=== PATIENT | female | born 1985 | race Caucasian/White ===

== ENCOUNTER → 2016-09-21 10:44 | Outpatient (CLI) | payer MEDICAID ==
[2009-10-09 12:40] VITALS: BMI 19.9
[~2016-09-21 10:44] MED LIST: ATIVAN1 MG PO; Demerol PO; FERROUS SULFAT325 MG PO; HYDROCODON-ACE1 EAC6 PO; IBUPROFEN600 MG PO; PRENATABS RX TA1 TAB PO; ZOLOFT100 MG PO
[2016-09-21 12:02] LABS: APPEARANCE CLEAR (CLEAR); BILIRUBIN NEGATIVE (NEGATIVE); COLOR YELLOW (YELLOW); GLUCOSE NEGATIVE (NEGATIVE); KETONE NEGATIVE (NEGATIVE); LEUKOCYTE ESTERASE NEGATIVE (NEGATIVE); NITRITE NEGATIVE (NEGATIVE); PROTEIN NEGATIVE (NEGATIVE); UROBILINOGEN NORMAL (NORMAL)
== END | disposition home or self-care (01) ==
LOC: D.LDO 10:44
PROVIDERS: Obstetrics & Gynecology
DX: Z34.83 Encounter for supervision of other normal pregnancy, third trimester (principal); Z3A.29 29 weeks gestation of pregnancy

== ENCOUNTER → 2016-10-07 16:30 | Outpatient (CLI) | payer MEDICAID ==
[2009-10-09 12:40] VITALS: BMI 19.9
== END | disposition home or self-care (01) ==
LOC: D.LDO 16:30
DX: O26.899 Other specified pregnancy related conditions, unspecified trimester (principal); R10.2 Pelvic and perineal pain

== ENCOUNTER 2016-10-14 07:51 | Emergency (ER) | payer MEDICAID ==
[2009-10-09 12:40] VITALS: BMI 19.9
[~2016-10-14 07:51] MED LIST changes: -ATIVAN1 MG PO; -Demerol PO; -HYDROCODON-ACE1 EAC6 PO; -IBUPROFEN600 MG PO; -ZOLOFT100 MG PO
[2016-10-14 08:26] LABS: APPEARANCE SLT CLOUDY (CLEAR); BACTERIA MANY /hpf (NONE SEEN); BILIRUBIN NEGATIVE (NEGATIVE); COLOR YELLOW (YELLOW); EPITHELIAL CELLS 0-5 /hpf (0-5); GLUCOSE NEGATIVE (NEGATIVE); KETONE NEGATIVE (NEGATIVE); LEUKOCYTE ESTERASE 2+ (NEGATIVE); MUCUS <1+ /lpf (NONE SEEN); NITRITE POSITIVE (NEGATIVE); PROTEIN TRACE mg/dL (NEGATIVE); UROBILINOGEN NORMAL (NORMAL)
[2016-10-27] MEDS ORDERED: ZOLOFT100 MG PO (17:36)
== END 2016-10-14 09:00 | disposition home or self-care (01) ==
LOC: D.ER 07:51
PROVIDERS: Family Medicine
DX: N39.0 Urinary tract infection, site not specified (principal); F41.9 Anxiety disorder, unspecified; F32.9 Major depressive disorder, single episode, unspecified

== ENCOUNTER → 2016-10-27 16:26 | Outpatient (CLI) | payer MEDICAID ==
[2009-10-09 12:40] VITALS: BMI 19.9
[~2016-10-27 16:26] MED LIST changes: +ATIVAN1 MG PO; +Demerol PO; +HYDROCODON-ACE1 EAC6 PO; +IBUPROFEN600 MG PO; +ZOLOFT100 MG PO
[2016-10-27 17:20] LABS: APPEARANCE CLEAR (CLEAR); BILIRUBIN NEGATIVE (NEGATIVE); COLOR YELLOW (YELLOW); GLUCOSE NEGATIVE (NEGATIVE); KETONE NEGATIVE (NEGATIVE); LEUKOCYTE ESTERASE NEGATIVE (NEGATIVE); NITRITE NEGATIVE (NEGATIVE); PROTEIN NEGATIVE (NEGATIVE); SPECIFIC GRAVITY 1.015 (1.005-1.020); UROBILINOGEN NORMAL (NORMAL)
== END | disposition home or self-care (01) ==
LOC: D.LDO 16:26
PROVIDERS: Specialist
DX: Z34.83 Encounter for supervision of other normal pregnancy, third trimester (principal); Z3A.34 34 weeks gestation of pregnancy; R10.9 Unspecified abdominal pain; M54.9 Dorsalgia, unspecified; R30.9 Painful micturition, unspecified

== ENCOUNTER → 2016-11-30 14:17 | Outpatient (CLI) | payer MEDICAID ==
[2009-10-09 12:40] VITALS: BMI 19.9
== END | disposition home or self-care (01) ==
LOC: D.LDO 14:17
DX: O36.8130 Decreased fetal movements, third trimester, not applicable or unspecified (principal); Z3A.39 39 weeks gestation of pregnancy

== ENCOUNTER 2016-12-03 05:30 | Inpatient (IN) | payer MEDICAID ==
[~2016-12-03] VITALS: Ht 170.2 cm; Wt 86.2 kg
[~2016-12-03 05:30] MED LIST changes: -ATIVAN1 MG PO; -Demerol PO; -HYDROCODON-ACE1 EAC6 PO; -IBUPROFEN600 MG PO
[2016-12-03] MEDS ORDERED: ZOLOFT100 MG PO (06:12)
[2016-12-03] MEDS ORDERED: ATIVAN1 MG PO (06:13)
[2016-12-03] MEDS ORDERED: HYDROCODON-ACE1 EAC6 PO (06:14)
[2016-12-03 06:15] VITALS: BP 143/70; Ht 170.2 cm; Wt 86.2 kg
[2016-12-03 06:44] LABS: HEMATOCRIT 32.8 % (36.0-48.0); HEMOGLOBIN 11.3 g/dL (12-16); MCH 29.5 pg (26.0-34.0); MCHC 34.5 g/dL (31.0-37.0); MCV 85.6 fL (80.0-100.0); MEAN PLATELET VOLUME 11.7 fL (7.4-10.4); RBC 3.83 10x6/uL (4.00-5.40); RDW 13.8 % (11.5-14.5); WBC 10.7 10x3/uL (4.8-10.8)
[2016-12-03 06:55] LABS: APPEARANCE CLEAR (CLEAR); COLOR YELLOW (YELLOW); SPECIFIC GRAVITY 1.015 (1.005-1.020)
[2016-12-03 06:56] LABS: BACTERIA FEW /hpf (NONE SEEN); BILIRUBIN NEGATIVE (NEGATIVE); EPITHELIAL CELLS OCC /hpf (0-5); GLUCOSE NEGATIVE (NEGATIVE); KETONE NEGATIVE (NEGATIVE); LEUKOCYTE ESTERASE NEGATIVE (NEGATIVE); NITRITE NEGATIVE (NEGATIVE); PROTEIN TRACE mg/dL (NEGATIVE); RED CELLS - URINE OCC /hpf (0-5); UROBILINOGEN NORMAL (NORMAL); WHITE CELLS - URINE NSEEN /hpf (0-5)
--- NOTE | 2016-12-03 16:13 | NUR ---
THE PATIENT REQUESTED A SHORT STAY IN [facility] SO SHE COULD GO TO HER ROOM.
[2016-12-03 16:23] VITALS: BP 129/81
--- NOTE | 2016-12-03 16:23 | NUR ---
RECEIVED PT FROM VIA STRETCHER TO ROOM 1257. PT TRANSFERS ONTO BED X 3 ASSISTS AND ROLLER BOARD. LIA WELL. PT AWAKE. AAO X 3. VSS. FUNDUS FIRM AT U/U. RUBRA LOCHIA SMALL AMT. PERIPADS TO PERINEUM. STERISTRIP TO UMB WITHOUT DRAINAGE NOTED. HRRR WITHOUT AUDIBLE MURMUR. BBS CLEAR X 4. ABDOMEN SOFT/NON-DISTENDED. PT UNABLE TO MOVE LEGS. SCDS ON BLE. PUMP ON. PT C/O ABDOMINAL CRAMPING OF "7" ON 0-10 PAIN SCALE. PIV SITE CLEAR TO RIGHT HAND. RAMAN TO GRAVITY DRAINING DARK, YELLOW URINE. SR UP X2. CALL LIGHT IN REACH.
[2016-12-03 16:35] VITALS: BP 133/78
[2016-12-03 16:50] VITALS: BP 135/71
[2016-12-03 17:05] VITALS: BP 95/62
--- NOTE | 2016-12-03 17:05 | NUR ---
TORADOL 30 MG GIVEN SIVP OVER 2 MINUTES FOR PT C/O PAIN. PT INSTRUCTED ON MED. VERBALIZES UNDERSTANDING.
--- NOTE | 2016-12-03 18:17 | NUR ---
PT C/O INCISIONAL PAIN/ACHING OF "9" ON 0-10 PAIN SCALE. DEMEROL 100 MG GIVEN PO ORDERED. ICE PACK TO INCISION.
[2016-12-03 19:05] VITALS: BP 129/71
--- NOTE | 2016-12-03 19:05 | NUR ---
RCVD THIS G2 NOW P2 FROM Chris DECKER RN TO CONT POST CARE. AAOX3. PT LYING ON BACK IN BED, HOB 70 DEGREES. PT C/O PAIN 7.10 IN ABD DESCRIBED CRAMPING. ABD APPEARS DISTENDED/BLOATED DUE TO GAS BUILD UP POST-OP. PT STATES "I HAVEN'T MOVED AT ALL PRETTY MUCH SINCE I GOT BACK." REPOSITIONED PT TO LT SIDE WITH PILLOWS SUPPORTING BACK FOR SUPPORT. PILLOW PLACED BETWEEN LEGS FOR COMFORT. PT STATES "THAT FEELS MUCH BETTER ALREADY." EDU PT ON AMB TO HELP MOVE GAS OUT. PT VERBALIZES UNDERSTANDING AND SAYS SHE IS STARTING TO GET FEELING BACK IN HER LEGS. WILL CONT. TO MONITOR. BREATH SOUNDS CLEAR AND UNLABORED X2. BOWEL SOUNDS ACTIVE X4. FUNDUS FIRM U/1, MIDLINE. SCANT LOCHIA RUBRA NOTED ON PERIPAD, NO CLOTS NOTED. NON PITTING EDEMA NOTED TO BLE. SCD'S ON, CONNECTED TO PUMP AND PUMP FUNCITIONING PROPERLY. FOB AND FAMILY AT BEDSIDE HOLDING AT THIS TIME. PT DENIES CURRENT NEEDS AT THIS TIME. BED LOW, WHEELS LOCKED, CL IN REACH, SIDE RAILS UP X2.
--- NOTE | 2016-12-03 20:14 | NUR ---
ROUNDS MADE. PT SAYS SHE'S READY TO ATTEMPT TO MOVE MORE. RAMAN CATH REMOVED WITH TIP INTACT. PT LIA. WELL. PIV TO RT HAND SL AT THIS TIME. PT IS ABLE TO MOVE UP IN BED AND BEAR WEIGHT ON LEGS. PT SAT UP ON SIDE OF BED AND STATED "I FEEL A LITTLE DIZZY." ALLOWED PT TO LIE BACK DOWN AND WILL REATTEMPT WHEN SHE GETS THE URGE TO VOID. ADVISED PT TO CALL FOR ASSISTANCE BEFORE ATTEMPTING TO AMB. PT VERBALIZES UNDERSTANDING. WILL CONT. POC.
--- NOTE | 2016-12-03 21:07 | NUR ---
M.O.M. GIVEN PER ORDERS. SEE EMAR. MOTRIN GIVEN FOR PAIN RATED 7/10 IN ABD DESCRIBED GAS PAINS. PT ENCOURAGED TO AMB. PT REPORTS THAT SHE FEELS SHE CAN GET UP NOW. FAMILY OUT OF ROOM AT THIS TIME. PLACED IN OPEN CRIB PER THIS RN. PT HELPED UP TO SITTING ON SIDE OF BED. PT DENIES C/O DIZZINESS OR LIGHTHEADEDNESS AT THIS TIME. PT ASSISTED TO STANDING AND REPORTS FEELING STEADY ON HER FEET. ASSISTED WITH AMB TO BATHROOM TO SITTING ON TOILET TO VOID. PT VOIDS APPROX 300ML CLEAR YELLOW URINE. CLEAN GOWN, PANTIES AND PERIPADS PROVIDED AT THIS TIME. LINENS CHANGED ON BED. PT UP TO AMB IN ROOM. STEADY GAIT NOTED. PT BACK TO BED, POSITIONED FOR COMFORT AND PLACED IN ARMS FOR BONDING. FRESH ICE PACK PROVIDED FOR INCISION SITE. VASOLINE PROVIDED PER PT REQUEST FOR DRY LIPS. PT DENIES FURTHER NEEDS AT THIS TIME. ADV TO CALL IF PAIN MEDS ARE NEEDED. PT VERBALIZED UNDERSTANDING. WILL CONTINUE POC.
--- NOTE | 2016-12-03 21:52 | NUR ---
PAIN REASSESSMENT COMPLETE. PT RATES PAIN 4/10 AND TOLERABLE AT THIS TIME. UP IN ARMS. PT DENIES FURTHER NEEDS AT THIS TIME.
--- NOTE | 2016-12-03 22:35 | NUR ---
PT SITTING UP IN BED WITH UP IN ARMS VISITING WITH FAMILY IN ROOM. PT RATES PAIN 5/10 CURRENTLY AND SAYS SHE WANTS TO EAT BEFORE TAKING HER PAIN MEDICATION. ADV PT TO CALL WHEN READY. PT VERALIZED UNDERSTANDING. PT REQUESTS & RECEIVES SODA WITH CUP OF ICE. DENIES FURTHER NEEDS AT THIS TIME. WILL CONT. TO MONITOR.
--- NOTE | 2016-12-03 23:00 | NUR ---
PT RINGS CL. THIS RN TO BEDSIDE. NBN IN ROOM ASSISTING PT WITH FEEDING INFANT A BOTTLE. FAMILY REMAINS AT BEDSIDE. PT REQUESTS& RECEIVES DEMEROL 50MG X1 TAB FOR PAIN RATED 7/10 IN ABD. PT STATES "ONCE THEY LEAVE I'LL CALL YOU FOR THE AMBIEN." PT DENIES FURTHER NEEDS AT THIS TIME. WILL CONT. TO MONITOR.
--- NOTE | 2016-12-03 23:40 | NUR ---
PT RINGS CL. THIS RN TO BEDSIDE. PT STATES "I REALLY JUST NEEDED A PEN SO I CAN FILL THIS STUFF FOR NURSERY OUT." PEN PROVIDED FOR PT. INFANT UP IN ARMS BONDING AT THIS TIME. PT RATES CURRENT PAIN 3/10 AND TOLERABLE. PT WILL CALL FOR AMBIEN. DENIES FURTHER NEEDS AT THIS TIME.
--- NOTE | 2016-12-04 00:47 | NUR ---
PT REQUESTS & RECEIVES AMBIEN 10 MG PER ORDERS, SEE EMAR, FOR SLEEP AID. PT CURRENTLY SITTING UP IN BED WITH INFANT IN LAP. FOB @ BEDSIDE. PT DENIES FURTHER NEEDS AND WILL CALL FOR INFANT RETURN TO NBN WHEN SHE FEELS 'SLEEPY.'
--- NOTE | 2016-12-04 01:49 | NUR ---
PT RINGS CL. THIS RN TO BEDSIDE. PT REQUESTS TO BE COVERED WITH HER BLANKET. SAME PROVIDED. PLACED IN OPEN CRIB AND SWADDLED PER THIS RN PER PT REQUEST. TRANPORTED TO NBN SO THAT PT CAN REST, PER PT REQUEST. PT DENIES FURTHER NEEDS AT THIS TIME, DENIES PAIN. FOB RESTING ON BEDSIDE COUCH AT THIS TIME. WILL CONT. TO MONITOR.
--- NOTE | 2016-12-04 03:37 | NUR ---
PT RINGS CL. THIS RN TO BEDSIDE. PT C/O PAIN 04/15 IN ABD AT THIS TIME AFTER GETTING UP TO VOID. PT REQUESTS AND RECEIVES DEMEROL 100MG PER ORDERS. SEE EMAR. PT DENIES FURTHER NEEDS AT THIS TIME. FOB CONT. TO REST ON BEDSIDE COUCH. WILL CONTINUE POC.
[2016-12-04 06:15] LABS: RAPID PLASMA REAGIN Non Reactive (Non Reactive)
--- NOTE | 2016-12-04 06:35 | NUR ---
PT. GETTING OUT OF BED TO GO TO BATHROOM. STATES SHE NOTED ABD. SORENESS TODAY. FOB ON YISEL FRANCOIS.
[2016-12-04 07:16] LABS: HEMATOCRIT 33.1 % (36.0-48.0); HEMOGLOBIN 11.3 g/dL (12-16); MCH 29.5 pg (26.0-34.0); MCHC 34.1 g/dL (31.0-37.0); MCV 86.4 fL (80.0-100.0); MEAN PLATELET VOLUME 11.5 fL (7.4-10.4); RBC 3.83 10x6/uL (4.00-5.40); RDW 13.8 % (11.5-14.5); WBC 13.3 10x3/uL (4.8-10.8)
--- NOTE | 2016-12-04 07:32 | OP ---
PATIENT NAME: CARMEN CONTRERAS MEDICAL RECORD: [id number] :83 LOCATION:[facility]1257 ADMISSION DATE:12/03/16 SURGEON: DMITRY HYMAN MD DATE OF OPERATION: 12/03/2016 Delivery Note Spontaneous vaginal delivery of 6 pound 13 ounce male , 9 and 9 Apgars, epidural anesthesia. No episiotomy, no laceration. Spontaneous delivery of intact-appearing placenta. ESTIMATED BLOOD LOSS: 400 cc. COMPLICATIONS OF DELIVERY: None. TRANSINT:[id number] Voice Confirmation ID: [id number] DOCUMENT ID: [id number] DMITRY HYMAN MD at 0732 CC: [id number] DICTATION DATE: 12/03/16 165 ANTENNA MACHINE OPERATOR: 12/03/16 2341 ADM IN [facility] [address] [place] [address]
--- NOTE | 2016-12-04 07:32 | OP ---
PATIENT NAME: CARMEN CONTRERAS MEDICAL RECORD: [id number] :83 LOCATION:[facility]ard1257 ADMISSION DATE:12/03/16 SURGEON: JOSIANE HYMAN MD DATE OF OPERATION: 12/03/2016 PREOPERATIVE DIAGNOSIS: Undesired fertility. POSTOPERATIVE DIAGNOSIS: Undesired fertility. PROCEDURE: bilateral tubal ligation. SURGEON: Josiane Hyman MD ANESTHESIA: Epidural. FINDINGS: Normal appearing tubal anatomy bilaterally. ESTIMATED BLOOD LOSS: Minimal. COMPLICATIONS: None. OPERATIVE NOTE: The patient was taken to the OR and under adequate epidural anesthesia, prepped and draped in the usual manner for abdominal procedures. A transverse incision was made at the umbilicus and extended through subcutaneous tissue and fascia. Peritoneum elevated and incised and this incision extended to the limits of skin incision. The right fallopian tube was identified and followed to its fimbriated end. It was then ligated using Filshie clips times 2 near the uterine cornu. Identical procedure was carried out on the left. Positions of the clips were observed to be adequate for complete obstruction of each tube and there was no bleeding. The fascial and peritoneal layers were then closed in a running #1 Vicryl suture. Skin incision closed using a subcuticular 2-0 plain gut suture. Dermabond was applied, a Steri-Strip dressing was applied and the patient went to the recovery area in good condition. TRANSINT:[id number] Voice Confirmation ID: [id number] DOCUMENT ID: [id number] JOSIANE HYMAN MD at 0732 CC: [id number] DICTATION DATE: 12/03/16 170 PATIENT TRANSPORTER: 12/03/16 2355 ADM IN [place] [id number] [place] [id number]
--- NOTE | 2016-12-04 07:50 | NUR ---
PT SITTING UP IN BED. CONSUMING REG DIET. TOLERATING WELL. DENIES NEEDS OR C/O.
--- NOTE | 2016-12-04 09:00 | NUR ---
Anais Fernandez 12/04/16 LE@ 8:15 S: Patient states this is her first time , hasn't ever done so in the past. O: Patient sitting up in bed, infant at the breast in cross cradle position, infant alert and calm. Asked if she is comfortable in this positions states she is ok, it's just different to be nursing. Offered to change position and explain why to try laid back . Had patient place tummy to tummy, in semi laid back position, infant face was directly in front of right breast, nose opposite of nipple. Infant latched immediately at 8:21 am, mouth 140 degrees, round checks, sucking in a rocking motion, mother and infant both appear comfortable, states no discomfort with latch. Explain how to verify latch is correct and how to remove from the breast if baby is latched incorrectly. If you hear a clicking sound or it hurts, remove infant and re-latch. take time and patience in the beginning. Explain supply and demand, benefits of skin to skin, feeding cues, and the importance of feeding on demand. The more is placed to the breast for every feeding this will help with establishing her milk supply. Patient is doing a wonderful job with feeding. Provided handout on skin to skin, feeding cues, positioning, waking a sleeping baby, engorgement, and what to expect the first week. Encouraged to continue to latch for every feeding. Asked if any questions, needs, or concerns, declined at this time. Will follow up, provided office and work cell, please call as needed. A: for the first time, both mother and infant doing great. P: Continue to support exclusively during hospital visit. David Griffin, CLC
[2016-12-04 09:23] VITALS: BP 106/67
--- NOTE | 2016-12-04 09:23 | NUR ---
PT SITTING UP IN BED. VSS. HRRR WITHOUT AUDIBLE MURMUR. BBS CLEAR. BS X 4. ABDOMEN SOFT/SLIGHTLY DISTENDED. UMB INCISION WITH STERISTRIP. NO DRAINAGE, REDNESS OR SWELLING NOTED TO INCISION. FUNDUS FIRM AT U/U. RUBRA LOCHIA SMALL AMT. NO CLOTS OR HEAVY BLEEDING PER PT STATES. NEG HOMANS' SIGN. PPP. MILD NON-PITTING EDEMA NOTED TO BLE. SL TO RIGHT HAND. SITE CLEAR. PT C/O INCISIONAL PAIN AND CRAMPING.
--- NOTE | 2016-12-04 10:27 | NUR ---
PT UP TO SHOWER. LINENS CHANGED.
--- NOTE | 2016-12-04 10:40 | NUR ---
PT FINISHED WITH SHOWER. LIA WELL. C/O BACK PAIN AND INCISIONAL PAIN OF "8" ON 0-10 PAIN SCALE. MOTRIN 600 MG AND MYLICON 80 MG GIVEN PO ORDERED. SL DC'D WITH CATHELON INTACT D/T PT C/O TENDERNESS TO SITE. PRESSURE BANDAGE TO SITE. PT LIA WELL.
--- NOTE | 2016-12-04 11:50 | NUR ---
PT SITTING UP IN BED. HOLDS WITH MUCH WARMTH SHOWN. DENIES NEEDS OR C/O.
--- NOTE | 2016-12-04 12:38 | NUR ---
PT CALLS ON LIGHT. REQUESTS AND RECEIVES DULCOLAX SUPPOSITORY RECTALLY ORDERED. PT INSTRUCTED ON MED. VERBALIZES UNDERSTANDING. LIA WELL.
--- NOTE | 2016-12-04 13:33 | NUR ---
PT SITTING UP IN BED. STATES HAD RESULTS FROM SUPPOSITORY. STATES PASSED A LITTLE GAS.
--- NOTE | 2016-12-04 14:29 | NUR ---
PT SITTING UP IN BED. FEEDING INFANT. ANALPRAM CREAM PROVIDED TO PT AT PT REQUEST FOR PAIN TO HEMMORHOIDS. DENIES OTHER C/O OR NEEDS.
--- NOTE | 2016-12-04 15:46 | NUR ---
PT C/O INCISIONAL AND BACK PAIN OF "7-8" ON 0-10 PAIN SCALE. DEMEROL 100 MG GIVEN PO ORDERED. MYLICON 80 MG GIVEN PO FOR GAS PAIN/DISTENTION. PT INSTRUCTED ON MEDS. VERBALIZES UNDERSTANDING.
--- NOTE | 2016-12-04 16:30 | NUR ---
PT SITTING UP IN BED. VISITS WITH SO. DENIES NEEDS OR C/O.
--- NOTE | 2016-12-04 17:40 | NUR ---
PT CALLS ON LIGHT. STATES DID NOT ORDER WHAT SHE WANTED FOR SUPPER. DIETARY NOTIFIED. PT INFORMED OF CHOICES FOR SUPPER ON [place] LINE. PT REQUESTS TO AMBULATE TO [place] TO SELECT MEAL AND EAT WITH SO IN [place]. DIETARY STAFF NOTIFIED.
--- NOTE | 2016-12-04 17:45 | NUR ---
PT AMBULATORY WITH SO TO [place].
--- NOTE | 2016-12-04 18:25 | NUR ---
PT AMBULATES WITH SO BACK TO ROOM. TOLERATES ACTIVITY WELL.
--- NOTE | 2016-12-04 19:10 | NUR ---
REPORT GIVEN TO ON-COMING SHIFT.
--- NOTE | 2016-12-04 19:15 | NUR ---
PT COMMUNICATIONS SCIENTIST LIGHT, THIS RN TO ROOM, PT REQUESTS PAIN MED, INFORMED PT THAT AM GETTING REPORT AT THIS TIME, AND I WILL BRING PAIN MED IN WHEN I COME BACK TO DO ASSESSMENT, PT VERBALIZES UNDERSTANDING, DENIES FURTHER NEEDS
[2016-12-04 19:43] VITALS: BP 133/76
--- NOTE | 2016-12-04 19:43 | NUR ---
ASSESSMENT PER FLOW SHEET, VS OBTAINED, [facility] WITH STERI STRIP CDI WITH NO DRAINAGE NOTED, PT REPORTS LITE BLEEDING, FLATUS, BM TODAY AND VOIDING BY SELF WITH NO DIFFICULTY, ADM DEMEROL PO PER MD ORDERS, SEE EMAR, PT REPORTS ANXIETY, REQUESTS ATIVAN, INFORMED PT THAT I WILL CHECK WITH THE INFORMATICA ARCHITECT DR AND LET HER KNOW, PT VERBALIZES UNDERSTANDING, DENIES FURTHER NEEDS, BABY TO NSY VIA OPEN CRIB CART PER THIS RN, DINNER TRAY, DIRTY LINENS, AND TRASH REMOVED FROM ROOM
--- NOTE | 2016-12-04 20:01 | NUR ---
DR NUR ON L&D UNIT, REPORT OF PT'S REQUEST FOR ATIVAN, ORDERS TO CONTINUE HOME MEDS, PT IS NOT TO TAKE ATIVAN IF
--- NOTE | 2016-12-04 20:05 | NUR ---
PT INFORMED OF ORDERS AND NOT TO BREASTFEED, PT STATES "I TRIED TO BREASTFEED, BUT HE JUST WOULDN'T TAKE IT, SO I'VE DECIDED NOT TO DO IT", INFORMED PT THAT I HAVE TO WAIT FOR PHARMACY TO BRING MEDS, PT VERBALIZES UNDERSTANDING, DENIES FURTHER NEEDS
--- NOTE | 2016-12-04 20:13 | NUR ---
PHARMACY NOTIFIED, REPORTS THAT ATIVAN NEEDS DIRECTIONS AND NOT JUST PRN
--- NOTE | 2016-12-04 20:14 | NUR ---
PT REPORTS TAKING ATIVAN ONCE DAILY NEEDED
--- NOTE | 2016-12-04 20:56 | NUR ---
PT SITTING ON COUCH, HAD A NOSE BLEED, STATES "I HAVE BEEN GETTING A NOSE BLEED EVERY SO OFTEN WHILE I WAS ", NO BLEED HAS STOPPED, ADM VITAMIN AND ATIVAN PO PER MD ORDERS, INFORMED PT THAT I WILL ADM THE ZOLOFT AND IRON TAB WHEN I RECEIVE THEM FROM THE PHARMACY, PT VERBALIZES UNDERSTANDING, DENIES FURTHER NEEDS AT THIS TIME, FOB SITTING ON COUCH WITH PT
--- NOTE | 2016-12-04 21:10 | NUR ---
BABY TO ROOM VIA OPEN CRIB CART PER THIS RN, BANDS CHECKED, BABY TO PT'S ARMS, BOTTLE PROVIDED, PT DENIES NEEDS
--- NOTE | 2016-12-04 22:02 | NUR ---
PT HOLDING BABY, ADM MOTRIN AND ZOLOFT PO PER MD ORDERS, SEE EMAR, WILL START IRON TOMORROW, PT REQUESTED AND SERVED COLA, DENIES FURTHER NEEDS, FOB SITTING ON BED WITH PT
--- NOTE | 2016-12-04 23:00 | NUR ---
PT TOOL DESIGN ENGINEER LIGHT, PT REQUESTED AND PROVIDED JORGE A PADS AND PANTIES, PT DENIES FURTHER NEEDS
--- NOTE | 2016-12-05 00:01 | NUR ---
PT TARIFF CLERK LIGHT, ADM JOHN PO PER MD ORDERS, SEE EMAR, BABY TO NSY VIA OPEN CRIB CART PER RACHNA HERNANDEZ RN, PT DENIES FURTHER NEEDS
--- NOTE | 2016-12-05 02:23 | NUR ---
PT RESTING WITH EYES CLOSED, RESP QUIET, NO DISTRESS NOTED, LEFT UNDISTURBED AT THIS TIME
--- NOTE | 2016-12-05 04:08 | NUR ---
PT RESTING WITH EYES CLOSED, RESP QUIET, NO DISTRESS NOTED, LEFT UNDISTURBED AT THIS TIME
--- NOTE | 2016-12-05 05:56 | NUR ---
PT RESTING WITH EYES CLOSED, RESP QUIET, NO DISTRESS NOTED, LEFT UNDISTURBED AT THIS TIME
--- NOTE | 2016-12-05 06:42 | NUR ---
SHIFT REPORT TO MAXIM CRUZ RN
[2016-12-05 07:25] VITALS: BP 119/84
--- NOTE | 2016-12-05 07:25 | NUR ---
PT AWAKE, RESTING IN BED. [facility] C/D/I WITH STERI STRIP. REPORTS NO HEAVY BLEEDING OR CLOTS. REG DIET PROVIDED. NO NEEDS AT THIS TIME. ANTICIPATES D/C THIS AFTERNOON.
--- NOTE | 2016-12-05 08:07 | NUR ---
PT DECLINES NICODERM AT THIS TIME.
--- NOTE | 2016-12-05 08:46 | NUR ---
DISCUSSED TDAP WITH PT. WOULD LIKE TO RECEIVE. VIS GIVEN.
--- NOTE | 2016-12-05 09:42 | NUR ---
UP AND ABOUT IN ROOM. REQUESTED PAIN RX, INCLUDING MOTRIN. SEE EMAR. PT REPORTS SMALL PAPULES ON OUTER SIDE OF LEFT HAND, CONCERNED RE POISON LLEE. WILL DISCUSS WITH DR. NUR.
--- NOTE | 2016-12-05 10:52 | NUR ---
AM MEDS AND TDAP GIVEN.
[2016-12-05] MEDS ORDERED: IBUPROFEN600 MG PO (11:07)
[2016-12-05] MEDS ORDERED: Demerol PO (11:08)
--- NOTE | 2016-12-05 11:08 | NUR ---
DR. NUR HERE FOR ROUNDS.
--- NOTE | 2016-12-05 11:49 | NUR ---
REG DIET SERVED.
--- NOTE | 2016-12-05 12:34 | NUR ---
SITTING UP IN CHAIR AT BEDSIDE.
--- NOTE | 2016-12-05 13:07 | NUR ---
D/C INSTRUCTIONS EXPLAINED TO PT. VOICED UNDERSTANDING. COPIES OF ALL GIVEN, WELL WRITTEN RX'S FOR DEMEROL AND MOTRIN PER DR. HYMAN. AWAITING 'S D/C. UP AND ABOUT IN ROOM AD BEATRICE.
--- NOTE | 2016-12-05 13:30 | NUR ---
AMBULATES OFF UNIT WITH SIG OTHER.
--- NOTE | 2016-12-05 13:49 | NUR ---
RET'D TO ROOM, SITTING UP ON SOFA AT BEDSIDE.
--- NOTE | 2016-12-05 14:28 | NUR ---
D/C'D HOME WITH , VIA WC TO PRIVATE CAR.
== END 2016-12-05 14:29 | disposition home or self-care (01) | DRG 767 ==
LOC: D.LD 05:30
PROVIDERS: ADMIT Obstetrics & Gynecology
PROC: 0UL70CZ Occlusion of Bilateral Fallopian Tubes with Extraluminal Device, Open Approach (ICD-10-PCS; 2016-12-03)
PROC: 10E0XZZ Delivery of Products of Conception, External Approach (ICD-10-PCS; principal; 2016-12-03 15:00)
DX: O99.824 Streptococcus B carrier state complicating childbirth (principal); Z3A.39 39 weeks gestation of pregnancy; Z37.0 Single live birth; Z30.2 Encounter for sterilization; Z30.09 Encounter for other general counseling and advice on contraception

== ENCOUNTER 2016-12-23 20:09 | Emergency (ER) | payer MEDICAID ==
[~2016-12-23 20:09] MED LIST changes: +ATIVAN1 MG PO; +Demerol PO; +HYDROCODON-ACE1 EAC6 PO; +IBUPROFEN600 MG PO
[2016-12-23 20:46] LABS: BASOPHILS 0.4 % (0.0-2.0); EOSINOPHILS 1.5 % (0-7); HEMATOCRIT 38.9 % (36.0-48.0); HEMOGLOBIN 13.1 g/dL (12-16); IMMATURE GRANULOCYTES 0.1 % (0-5); LYMPHOCYTES 37.7 % (15-50); MCH 30.1 pg (26.0-34.0); MCHC 33.7 g/dL (31.0-37.0); MCV 89.4 fL (80.0-100.0); MEAN PLATELET VOLUME 9.6 fL (7.4-10.4); MONOCYTES 5.8 % (2-11); NEUTROPHILS 54.5 % (40-80); RBC 4.35 10x6/uL (4.00-5.40); RDW 12.9 % (11.5-14.5); WBC 6.9 10x3/uL (4.8-10.8)
[2016-12-23 21:01] LABS: PLATELET COUNT 248 10x3/uL (130-400)
[2016-12-23 21:03] LABS: ALBUMIN 3.3 g/dL (3.4-5.0); ALKALINE PHOSPHATASE 85 U/L (46-116); ALT (SGPT) 24 U/L (10-68); BILIRUBIN - TOTAL 0.22 mg/dL (0.2-1.3); CALC OSMOLALITY 287 mosm/kg (275-300); CALCIUM 8.8 mg/dL (8.5-10.1); CARBON DIOXIDE 30.1 mmol/L (21.0-32.0); CHLORIDE - SERUM 108 mmol/L (98-107); CREATININE - SERUM 0.9 mg/dL (0.6-1.3); GLUCOSE 89 mg/dL (74-106); POTASSIUM - SERUM 3.6 mmol/L (3.5-5.1); PROTEIN - SERUM 7.1 g/dL (6.4-8.2); SODIUM 145 mmol/L (136-145); UREA NITROGEN 12 mg/dL (7-18); eGFR NON AFRICAN AMERICAN 76 mL/min (90-120)
[2016-12-23 22:24] LABS: HCG SERUM NEGATIVE (NEGATIVE)
== END 2016-12-24 00:45 | disposition home or self-care (01) ==
LOC: D.ER 20:09
PROVIDERS: Family Medicine
DX: R10.31 Right lower quadrant pain (principal); F41.9 Anxiety disorder, unspecified; F32.9 Major depressive disorder, single episode, unspecified

== ENCOUNTER 2017-03-23 17:05 | Emergency (ER) | payer MEDICAID | END 2017-03-23 18:55 | disposition home or self-care (01) | LOC: D.ER 17:05 | DX: M54.12 Radiculopathy, cervical region (principal); M62.838 Other muscle spasm ==

== ENCOUNTER 2017-05-28 13:08 | Emergency (ER) | payer MEDICAID | END 2017-05-28 15:16 | disposition home or self-care (01) | LOC: D.ER 13:08 | DX: S16.1XXA Strain of muscle, fascia and tendon at neck level, initial encounter (principal); X58.XXXA Exposure to other specified factors, initial encounter; Y93.89 Activity, other specified; Y92.019 Unspecified place in single-family (private) house as the place of occurrence of the external cause; S39.012A Strain of muscle, fascia and tendon of lower back, initial encounter ==

== ENCOUNTER 2017-06-27 15:15 | Emergency (ER) | payer MEDICAID ==
[2017-10-05] MEDS ORDERED: CYMBALTA60 MG PO (11:13)
[2017-10-05] MEDS ORDERED: NORCO 7.5/325 T1 TA1 PO (11:13)
[2017-10-05] MEDS ORDERED: VALIUM10 MG PO (11:14)
[2017-10-05] MEDS ORDERED: NEURONTIN 400400 MG PO (11:14)
[2017-10-05] MEDS ORDERED: CYCLOBENZAPRINE10 MG PO (11:15)
[2017-10-05] MEDS ORDERED: SEROQUEL100 MG PO (11:15)
[2017-10-05] MEDS ORDERED: INDERAL10 MG PO (11:15)
[2017-10-05] MEDS ORDERED: ABILIFY2 MG PO (11:15)
[2017-10-05] MEDS ORDERED: VITAMIN B-1000 MCG/M IM (11:16)
[2017-10-05] MEDS ORDERED: VITAMIN D5000 UNIT PO (11:16)
== END 2017-06-27 18:40 | disposition home or self-care (01) ==
LOC: D.ER 15:15
DX: G43.909 Migraine, unspecified, not intractable, without status migrainosus (principal)

== ENCOUNTER → 2017-06-28 08:40 | Outpatient (CLI) | payer MEDICAID ==
[~2017-06-28 08:40] MED LIST changes: +ABILIFY2 MG PO; +CYCLOBENZAPRINE10 MG PO; +CYMBALTA60 MG PO; +INDERAL10 MG PO; +NEURONTIN 400400 MG PO; +NORCO 7.5/325 T1 TA1 PO; +PERCOCET 10/3251 TA1 PO; +SEROQUEL100 MG PO; +VALIUM10 MG PO; +VITAMIN B-1000 MCG/M IM; +VITAMIN D5000 UNIT PO
== END | disposition home or self-care (01) ==
LOC: D.MRI 08:30
DX: R41.3 Other amnesia (principal)

== ENCOUNTER 2017-08-28 17:47 | Emergency (ER) | payer MEDICAID ==
[~2017-08-28 17:47] MED LIST changes: -ABILIFY2 MG PO; -CYCLOBENZAPRINE10 MG PO; -CYMBALTA60 MG PO; -INDERAL10 MG PO; -NEURONTIN 400400 MG PO; -NORCO 7.5/325 T1 TA1 PO; -PERCOCET 10/3251 TA1 PO; -SEROQUEL100 MG PO; -VALIUM10 MG PO; -VITAMIN B-1000 MCG/M IM; -VITAMIN D5000 UNIT PO
[2017-10-05] MEDS ORDERED: NORCO 7.5/325 T1 TA1 PO (11:13)
[2017-10-05] MEDS ORDERED: CYMBALTA60 MG PO (11:13)
[2017-10-05] MEDS ORDERED: VALIUM10 MG PO (11:14)
[2017-10-05] MEDS ORDERED: NEURONTIN 400400 MG PO (11:14)
[2017-10-05] MEDS ORDERED: ABILIFY2 MG PO (11:15)
[2017-10-05] MEDS ORDERED: SEROQUEL100 MG PO (11:15)
[2017-10-05] MEDS ORDERED: CYCLOBENZAPRINE10 MG PO (11:15)
[2017-10-05] MEDS ORDERED: INDERAL10 MG PO (11:15)
[2017-10-05] MEDS ORDERED: VITAMIN D5000 UNIT PO (11:16)
[2017-10-05] MEDS ORDERED: VITAMIN B-1000 MCG/M IM (11:16)
== END 2017-08-28 19:17 | disposition home or self-care (01) ==
LOC: D.ER 17:47
DX: J06.9 Acute upper respiratory infection, unspecified (principal)

== ENCOUNTER 2017-09-09 08:31 | Emergency (ER) | payer MEDICAID ==
[2017-09-09 10:08] LABS: BASOPHILS 0.1 % (0-2); HEMATOCRIT 37.8 % (36.0-48.0); HEMOGLOBIN 12.9 g/dL (12-16); IMMATURE GRANULOCYTES 0.3 % (0-5); LYMPHOCYTES 17.4 % (15-50); MCH 30.1 pg (26.0-34.0); MCHC 34.1 g/dL (31.0-37.0); MCV 88.3 fL (80.0-100.0); MEAN PLATELET VOLUME 9.3 fL (7.4-10.4); MONOCYTES 7.7 % (2-11); NEUTROPHILS 73.5 % (40-80); RBC 4.28 10x6/uL (4.00-5.40); RDW 13.3 % (11.5-14.5); WBC 7.4 10x3/uL (4.8-10.8)
[2017-09-09 10:11] LABS: PLATELET COUNT 308 10x3/uL (130-400)
[2017-09-09 10:43] LABS: HCG SERUM NEGATIVE (NEGATIVE)
[2017-09-09 12:03] LABS: APPEARANCE HAZY (CLEAR); BILIRUBIN NEGATIVE (NEGATIVE); COLOR YELLOW (YELLOW); EPITHELIAL CELLS 0-5 /hpf (0-5); GLUCOSE NEGATIVE (NEGATIVE); KETONE SMALL mg/dL (NEGATIVE); MUCUS <1+ /lpf (NONE SEEN); NITRITE NEGATIVE (NEGATIVE); PROTEIN NEGATIVE (NEGATIVE); RED CELLS - URINE OCC /hpf (0-5); UROBILINOGEN NORMAL (NORMAL); WHITE CELLS - URINE OCC /hpf (0-5)
[2017-09-09 12:04] LABS: AMORPHOUS SEDIMENT <1+ /lpf (NONE SEEN); BACTERIA FEW /hpf (NONE SEEN)
[2017-10-05] MEDS ORDERED: CYMBALTA60 MG PO (11:13)
[2017-10-05] MEDS ORDERED: NORCO 7.5/325 T1 TA1 PO (11:13)
[2017-10-05] MEDS ORDERED: NEURONTIN 400400 MG PO (11:14)
[2017-10-05] MEDS ORDERED: VALIUM10 MG PO (11:14)
[2017-10-05] MEDS ORDERED: CYCLOBENZAPRINE10 MG PO (11:15)
[2017-10-05] MEDS ORDERED: INDERAL10 MG PO (11:15)
[2017-10-05] MEDS ORDERED: SEROQUEL100 MG PO (11:15)
[2017-10-05] MEDS ORDERED: ABILIFY2 MG PO (11:15)
[2017-10-05] MEDS ORDERED: VITAMIN B-1000 MCG/M IM (11:16)
[2017-10-05] MEDS ORDERED: VITAMIN D5000 UNIT PO (11:16)
== END 2017-09-09 11:53 | disposition home or self-care (01) ==
LOC: D.ER 08:31
PROVIDERS: Emergency Medicine
DX: R42 Dizziness and giddiness (principal)

== ENCOUNTER 2017-10-07 08:24 | Day surgery (SDC) | payer MEDICAID ==
[2017-10-05 11:43] LABS: HEMATOCRIT 38.1 % (36.0-48.0); HEMOGLOBIN 12.8 g/dL (12-16); MCH 29.5 pg (26.0-34.0); MCHC 33.6 g/dL (31.0-37.0); MCV 87.8 fL (80.0-100.0); MEAN PLATELET VOLUME 9.4 fL (7.4-10.4); RBC 4.34 10x6/uL (4.00-5.40); RDW 13.4 % (11.5-14.5); WBC 7.1 10x3/uL (4.8-10.8)
[~2017-10-07] VITALS: Ht 170.2 cm; Wt 84.4 kg
--- NOTE | ~2017-10-07 | OP ---
PATIENT NAME: CARMEN CONTRERAS MEDICAL RECORD: [id number] :83 LOCATION:[facility] ADMISSION DATE: SURGEON: KEYONNA MURRAY MD DATE OF OPERATION: 10/07/2017 PREOPERATIVE DIAGNOSIS: Patellofemoral syndrome of the right knee. POSTOPERATIVE DIAGNOSIS: Patellofemoral syndrome of the right knee. PROCEDURE: Arthroscopic lateral release of the right knee. SURGEON: Keyonna Murray MD ANESTHESIA: General. INTRAOPERATIVE COMPLICATIONS: None. 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 OPERATIVE SUMMARY IN DETAIL: After obtaining the appropriate preoperative orthopedic surgery consents as well as anesthetic consultation, evaluation and clearance, the patient was brought to the operating room and placed on the operating table in supine position. After adequate general laryngeal mask was administered, tourniquet was placed about the proximal aspect of the right lower extremity. Right lower extremity was then prepped and draped in routine sterile fashion. The leg was elevated and exsanguinated, tourniquet inflated to 350 mmHg. Routine inferolateral portal was established followed by inferomedial portal. Diagnostic arthroscopy did reveal the above findings. Intraoperative photos were taken. At this point, the camera was placed in the medial portal for direct visualization in the lateral retinaculum, follow surface tissue ablation system was utilized from just beneath the vastus lateralis, the inferolateral pulled to completely release the lateral retinaculum to the subcutaneous tissue. Having completed this, arthroscopy portals were closed in routine interrupted fashion using 4-0 Prolene. The knee was insufflated with 30 cc of 0.25% Marcaine and 80 mg Depo-Medrol. Sterile dressings were applied. Tourniquet was deflated. The patient was awakened and taken to the recovery room in stable condition. All final needle and sponge counts were correct. TRANSINT:[id number] Voice Confirmation ID: [id number] DOCUMENT ID: [id number] KEYONNA MURRAY MD at 1436 CC: [id number] DICTATION DATE: 10/07/17 1014 PRODUCT ADVISOR: 10/07/17 1208 DEP [facility] 10/07/17 [facility] [address] [facility] [place] [address]
[~2017-10-07 08:24] MED LIST changes: +ABILIFY2 MG PO; +CYCLOBENZAPRINE10 MG PO; +CYMBALTA60 MG PO; +INDERAL10 MG PO; +NEURONTIN 400400 MG PO; +NORCO 7.5/325 T1 TA1 PO; +SEROQUEL100 MG PO; +VALIUM10 MG PO; +VITAMIN B-1000 MCG/M IM; +VITAMIN D5000 UNIT PO
[2017-10-07 08:27] VITALS: BP 120/87; Ht 170.2 cm; Wt 84.4 kg
[2017-10-07] MEDS ORDERED: PERCOCET 10/3251 TA1 PO (10:10)
== END 2017-10-07 12:05 | disposition home or self-care (01) ==
LOC: D.OPS 08:24
PROVIDERS: Anesthesiology
DX: M22.2X1 Patellofemoral disorders, right knee (principal); M94.261 Chondromalacia, right knee; Z01.812 Encounter for preprocedural laboratory examination

== ENCOUNTER 2017-12-15 11:10 | Emergency (ER) | payer MEDICAID ==
[2017-10-07 08:27] VITALS: BMI 29.2
[~2017-12-15 11:10] MED LIST changes: +PERCOCET 10/3251 TA1 PO
== END 2017-12-15 12:52 | disposition home or self-care (01) ==
LOC: D.ER 11:10
DX: H92.02 Otalgia, left ear (principal); H66.92 Otitis media, unspecified, left ear

== ENCOUNTER → 2017-12-22 12:57 | Outpatient (CLI) | payer MEDICAID ==
[2017-10-07 08:27] VITALS: BMI 29.2
== END | disposition home or self-care (01) ==
LOC: D.MRI 11-25 14:00
DX: M25.561 Pain in right knee (principal); M25.511 Pain in right shoulder

== ENCOUNTER 2018-01-29 17:36 | Emergency (ER) | payer MEDICAID ==
[2017-10-07 08:27] VITALS: BMI 29.2
== END 2018-01-29 19:47 | disposition home or self-care (01) ==
LOC: D.ER 17:36
DX: G43.909 Migraine, unspecified, not intractable, without status migrainosus (principal)

== ENCOUNTER 2018-02-15 17:19 | Emergency (ER) | payer MEDICAID ==
[~2018-02-15] VITALS: Ht 170.2 cm; Wt 81.8 kg
[2018-02-15 17:54] VITALS: Ht 170.2 cm; Wt 81.8 kg
[2018-02-15] MEDS ORDERED: SOMA350 MG PO (21:03)
[2018-02-15] MEDS ORDERED: PERCOCET 7.5/321 TAB PO (21:03)
[2018-02-15 21:29] VITALS: BP 140/92
[2018-04-04] MEDS ORDERED: PERCOCET 10/3251 TA1 PO (13:21)
== END 2018-02-15 21:30 | disposition home or self-care (01) ==
LOC: D.ER 17:19
DX: M48.02 Spinal stenosis, cervical region (principal)

== ENCOUNTER 2018-06-19 06:33 | Emergency (ER) | payer MEDICAID ==
[~2018-06-19] VITALS: Ht 170.2 cm; Wt 74.1 kg
[~2018-06-19 06:33] MED LIST changes: +PERCOCET 7.5/321 TAB PO; +SOMA350 MG PO
[2018-06-19 06:35] VITALS: Ht 170.2 cm; Wt 74.1 kg
[2018-06-19 07:04] LABS: BASOPHILS 0.1 % (0-2); EOSINOPHILS 0.1 % (0-7); HEMATOCRIT 37.7 % (36.0-48.0); HEMOGLOBIN 12.8 g/dL (12-16); IMMATURE GRANULOCYTES 0.1 % (0-5); LYMPHOCYTES 27.5 % (15-50); MCV 88.3 fL (80.0-100.0); MEAN PLATELET VOLUME 8.9 fL (7.4-10.4); MONOCYTES 8.1 % (2-11); NEUTROPHILS 64.1 % (40-80); PLATELET COUNT 290 10x3/uL (130-400); RBC 4.27 10x6/uL (4.00-5.40); WBC 6.9 10x3/uL (4.8-10.8)
[2018-06-19 07:38] LABS: ALBUMIN 3.6 g/dL (3.4-5.0); ALKALINE PHOSPHATASE 42 U/L (46-116); ALT (SGPT) 20 U/L (10-68); BILIRUBIN - TOTAL 0.18 mg/dL (0.2-1.3); CALC OSMOLALITY 286 mosm/kg (275-300); CALCIUM 8.4 mg/dL (8.5-10.1); CARBON DIOXIDE 23.3 mmol/L (21.0-32.0); CHLORIDE - SERUM 108 mmol/L (98-107); CREATININE - SERUM 0.9 mg/dL (0.6-1.3); GLUCOSE 103 mg/dL (74-106); PROTEIN - SERUM 7.2 g/dL (6.4-8.2); SODIUM 144 mmol/L (136-145); UREA NITROGEN 12 mg/dL (7-18); eGFR NON AFRICAN AMERICAN 76 mL/min (90-120)
[2018-06-19 07:50] LABS: CKMB 0.1 U/L (0.0-3.6); CREATINE KINASE 32 UL (21-215); PRO BNP 30 pg/mL (0-125)
[2018-06-19 07:51] LABS: TROPONIN-I < 0.017 ng/mL (0.000-0.060)
[2018-06-19 08:11] LABS: APPEARANCE HAZY (CLEAR); COLOR YELLOW (YELLOW); GLUCOSE NEGATIVE (NEGATIVE); KETONE NEGATIVE (NEGATIVE); NITRITE NEGATIVE (NEGATIVE); PROTEIN 2+ mg/dL (NEGATIVE); SPECIFIC GRAVITY 1.025 (1.005-1.020); UROBILINOGEN NORMAL (NORMAL)
[2018-06-19 08:12] LABS: BILIRUBIN NEGATIVE (NEGATIVE)
[2018-06-19 08:13] LABS: BACTERIA MODERATE /hpf (NONE SEEN); CALCIUM OXALATE CRYSTALS 0-5 /hpf (NONE SEEN); EPITHELIAL CELLS 0-5 /hpf (0-5); MUCUS <1+ /lpf (NONE SEEN); WHITE CELLS - URINE 0-5 /hpf (0-5)
[2018-06-19 08:14] LABS: UDS - AMPHET NEGATIVE QUAL (NEGATIVE); UDS - BARB NEGATIVE QUAL (NEGATIVE); UDS - BENZO POSITIVE QUAL (NEGATIVE); UDS - COCAINE NEGATIVE QUAL (NEGATIVE); UDS - OPIATE NEGATIVE QUAL (NEGATIVE); UDS - PCP NEGATIVE QUAL (NEGATIVE); UDS - THC NEGATIVE QUAL (NEGATIVE)
[2018-06-19 09:32] VITALS: BP 146/94
== END 2018-06-19 09:33 | disposition home or self-care (01) ==
LOC: D.ER 06:33
PROVIDERS: Emergency Medicine; Family Medicine
DX: R07.9 Chest pain, unspecified (principal); R51 Headache; E05.90 Thyrotoxicosis, unspecified without thyrotoxic crisis or storm; R00.2 Palpitations; R42 Dizziness and giddiness; R11.10 Vomiting, unspecified; R00.0 Tachycardia, unspecified

== ENCOUNTER 2018-06-20 09:31 | Emergency (ER) | payer MEDICAID ==
[~2018-06-20] VITALS: Ht 170.2 cm; Wt 74.1 kg
[2018-06-20 09:38] VITALS: Ht 170.2 cm; Wt 74.1 kg
[2018-06-20 10:57] VITALS: BP 135/90
== END 2018-06-20 10:56 | disposition home or self-care (01) ==
LOC: D.ER 09:31
DX: R51 Headache (principal); F41.9 Anxiety disorder, unspecified; R11.0 Nausea

== ENCOUNTER 2018-07-26 17:45 | Emergency (ER) | payer MEDICAID ==
[~2018-07-26] VITALS: Ht 170.2 cm; Wt 75.9 kg
[2018-07-26 18:18] VITALS: Ht 170.2 cm; Wt 75.9 kg
[2018-07-26 20:00] VITALS: BP 133/90
[2018-07-29] MEDS ORDERED: NORCO 10-325 TA1 TAB PO (11:50)
[2018-07-29] MEDS ORDERED: TRINTELLIX20 MG PO (11:51)
[2018-07-29] MEDS ORDERED: REXULTI1 MG PO (11:52)
== END 2018-07-26 20:00 | disposition home or self-care (01) ==
LOC: D.ER 17:45
DX: M25.512 Pain in left shoulder (principal); M75.102 Unspecified rotator cuff tear or rupture of left shoulder, not specified as traumatic

== ENCOUNTER 2018-08-01 07:45 | Day surgery (SDC) | payer MEDICAID ==
[2018-07-29 12:32] LABS: HEMATOCRIT 35.8 % (36.0-48.0); HEMOGLOBIN 12.2 g/dL (12-16); MCH 30.8 pg (26.0-34.0); MCHC 34.1 g/dL (31.0-37.0); MCV 90.4 fL (80.0-100.0); MEAN PLATELET VOLUME 9.1 fL (7.4-10.4); RBC 3.96 10x6/uL (4.00-5.40); RDW 14.5 % (11.5-14.5); WBC 9.4 10x3/uL (4.8-10.8)
[~2018-08-01] VITALS: Ht 170.2 cm; Wt 74.8 kg
--- NOTE | ~2018-08-01 | OP ---
PATIENT NAME: CARMEN CONTRERAS MEDICAL RECORD: [id number] :83 LOCATION:[facility] ADMISSION DATE: SURGEON: KEYONNA MURRAY MD DATE OF OPERATION: 08/01/2018 PREOPERATIVE DIAGNOSES: Adhesive capsulitis of the right shoulder, biceps tendinitis of the right shoulder, and impingement syndrome of the right shoulder. POSTOPERATIVE DIAGNOSES: Adhesive capsulitis of the right shoulder, biceps tendinitis of the right shoulder, and impingement syndrome of the right shoulder. PROCEDURES: 1. Arthroscopic biceps tenodesis. 2. Arthroscopic distal clavicle excision under separate incision. 3. Arthroscopic subacromial decompression, acromioplasty, and bursectomy. 4. Arthroscopic manipulation under anesthesia. SURGEON: Keyonna Murray MD ANESTHESIA: General. INTRAOPERATIVE COMPLICATIONS: None. SUMMARY OF PATHOLOGIC FINDINGS: The patient did not have a rotator cuff tear except for mild area of undersurface tearing at the bicipital groove. The patient did have severe biceps tendinitis associated with small tearing as noted above. 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 The patient got good release with manipulation under anesthesia. OPERATIVE SUMMARY IN DETAIL: After obtaining the appropriate preoperative orthopedic surgery consent as well as anesthetic consultation, evaluation, and clearance, the patient was brought to the operating room and placed on the operating table in the supine position. After general laryngeal mask was administered, the patient was placed in left lateral decubitus position. All pressure points were well padded to include down leg peroneal pad as well as axillary roll. The patient was held firmly to the operating table using the vacuum pack suction system. Right upper extremity and shoulder were then prepped and draped in routine sterile fashion. Prior to putting the patient's arm in a traction boom, manipulation was carried out with scapular stabilization first under abduction, external rotation, internal rotation, forward flexion as well as extension. After good manipulation was achieved, the arm was held in the Arthrex traction boom at 30 degrees of forward flexion, 30 degrees of abduction, and 10 pounds of traction laterally. Arthroscopy was established in the glenohumeral joint from posterior portal. Anterior portal was established in the anterior safe interval. Significant amount of blood was lavaged after the manipulation; however, at this point, diagnostic arthroscopy was noted as above. The patient's biceps tendon was then pinned to the proximal aspect of the groove for later identification. Attention was then turned to the subacromial space. While in the subacromial space, Arthrex tissue ablation system was utilized to denude the undersurface of the acromion of all soft tissue elements and release the coracoacromial ligament. A 5-0 barrel bur was used to perform acromioplasty at the level of acromioclavicular joint. Having completed this, attention was turned to the distal clavicle. Distal clavicle OPERATIVE REPORT [id number] CARMEN CONTRERAS excision for 1 cm was done through separate incision under direct arthroscopic visualization. Lastly, a small incision was made over the area of the biceps tendonitis. Under direct arthroscopic visualization, the biceps tendon was dissected free. The biceps tendon was then grasped and incised. A FiberLoop tendon was then placed through the biceps tendon. It was then secured firmly with a tenodesis screw from Arthrex. Having completed this, residual biceps tendon was then debrided from the intra-articular aspect of the shoulder under direct arthroscopic visualization. Lastly, arthroscopic portals were closed in routine interrupted fashion using 4-0 Prolene. Sterile dressings were applied. The patient was awakened and taken to the recovery room in stable condition. All final needle and sponge counts were correct. TRANSINT:[id number] Voice Confirmation ID: [id number] DOCUMENT ID: [id number] TERRI HARP, KEYONNA JAIN at 0840 CC: [id number] DICTATION DATE: 08/03/18 1636 AGRICULTURE INSPECTOR: 08/03/181917 [facility] 08/01/18 [facility] [address] [place] [id number]
[~2018-08-01 07:45] MED LIST changes: +NORCO 10-325 TA1 TAB PO; +REXULTI1 MG PO; +TRINTELLIX20 MG PO
[2018-08-01 08:47] VITALS: BP 127/87; Ht 170.2 cm; Wt 74.8 kg
[2018-08-01] MEDS ORDERED: DILAUDID2 MG PO (11:32)
[2018-08-14] MEDS ORDERED: ROBAXIN500 MG PO (18:51)
[2018-08-14] MEDS ORDERED: TORADOL10 MG PO (18:51)
== END 2018-08-01 13:55 | disposition home or self-care (01) ==
LOC: D.OPS 07:45 → D.PAN 10:00 → D.OPS 10:00 → D.PAN 10:35 → D.OPS 13:55 → D.PAN 14:10 → D.OPS 14:40
PROVIDERS: Anesthesiology
DX: M75.01 Adhesive capsulitis of right shoulder (principal); M75.41 Impingement syndrome of right shoulder; M75.21 Bicipital tendinitis, right shoulder

== ENCOUNTER 2018-08-14 16:20 | Emergency (ER) | payer MEDICAID ==
[2018-08-14 17:53] LABS: BASOPHILS 0.2 % (0-2); EOSINOPHILS 0.1 % (0-7); HEMATOCRIT 36.8 % (36.0-48.0); HEMOGLOBIN 12.5 g/dL (12-16); IMMATURE GRANULOCYTES 0.1 % (0-5); LYMPHOCYTES 17.4 % (15-50); MCH 30.5 pg (26.0-34.0); MCV 89.8 fL (80.0-100.0); MEAN PLATELET VOLUME 9.2 fL (7.4-10.4); MONOCYTES 3.6 % (2-11); NEUTROPHILS 78.6 % (40-80); RDW 14.1 % (11.5-14.5); WBC 8.5 10x3/uL (4.8-10.8)
[2018-08-14 17:56] LABS: PLATELET COUNT 512 10x3/uL (130-400)
[2018-08-14 18:02] LABS: CALC OSMOLALITY 278 mosm/kg (275-300); CARBON DIOXIDE 26.8 mmol/L (21.0-32.0); CHLORIDE - SERUM 104 mmol/L (98-107); CREATININE - SERUM 0.8 mg/dL (0.6-1.3); GLUCOSE 100 mg/dL (74-106); POTASSIUM - SERUM 3.6 mmol/L (3.5-5.1); SODIUM 141 mmol/L (136-145); UREA NITROGEN 6 mg/dL (7-18); eGFR NON AFRICAN AMERICAN 87 mL/min (90-120)
== END 2018-08-14 19:10 | disposition home or self-care (01) ==
LOC: D.ER 16:20
PROVIDERS: Family Medicine
DX: G89.18 Other acute postprocedural pain (principal); R51 Headache; R68.81 Early satiety; M54.2 Cervicalgia

== ENCOUNTER 2018-09-01 21:03 | Emergency (ER) | payer MEDICAID ==
[~2018-09-01] VITALS: Ht 170.2 cm; Wt 76.8 kg
[~2018-09-01 21:03] MED LIST changes: +DILAUDID2 MG PO; +ROBAXIN500 MG PO; +TORADOL10 MG PO
[2018-09-01 21:30] VITALS: Ht 170.2 cm; Wt 76.8 kg
[2018-09-01 22:25] LABS: HCG URINE NEGATIVE (NEGATIVE)
[2018-09-01 22:26] LABS: APPEARANCE CLEAR (CLEAR); BILIRUBIN NEGATIVE (NEGATIVE); COLOR YELLOW (YELLOW); EPITHELIAL CELLS 0-5 /hpf (0-5); GLUCOSE NEGATIVE (NEGATIVE); KETONE NEGATIVE (NEGATIVE); NITRITE NEGATIVE (NEGATIVE); PROTEIN NEGATIVE (NEGATIVE); RED CELLS - URINE 0-5 /hpf (0-5); SPECIFIC GRAVITY 1.025 (1.005-1.020); UROBILINOGEN NORMAL (NORMAL); WHITE CELLS - URINE NSEEN /hpf (0-5)
[2018-09-01 22:29] LABS: BASOPHILS 0.2 % (0-2); EOSINOPHILS 0.4 % (0-7); HEMATOCRIT 39.5 % (36.0-48.0); HEMOGLOBIN 13.3 g/dL (12-16); IMMATURE GRANULOCYTES 0.3 % (0-5); LYMPHOCYTES 17.8 % (15-50); MCH 30.2 pg (26.0-34.0); MCHC 33.7 g/dL (31.0-37.0); MCV 89.6 fL (80.0-100.0); MEAN PLATELET VOLUME 9.4 fL (7.4-10.4); MONOCYTES 6.8 % (2-11); NEUTROPHILS 74.5 % (40-80); PLATELET COUNT 236 10x3/uL (130-400); RBC 4.41 10x6/uL (4.00-5.40); WBC 11.7 10x3/uL (4.8-10.8)
[2018-09-01 22:42] LABS: ALBUMIN 3.7 g/dL (3.4-5.0); ALKALINE PHOSPHATASE 56 U/L (46-116); ALT (SGPT) 20 U/L (10-68); BILIRUBIN - TOTAL 0.19 mg/dL (0.2-1.3); CALC OSMOLALITY 286 mosm/kg (275-300); CALCIUM 9.2 mg/dL (8.5-10.1); CARBON DIOXIDE 26.2 mmol/L (21.0-32.0); CHLORIDE - SERUM 106 mmol/L (98-107); CREATININE - SERUM 0.9 mg/dL (0.6-1.3); GLUCOSE 95 mg/dL (74-106); POTASSIUM - SERUM 3.7 mmol/L (3.5-5.1); PROTEIN - SERUM 7.6 g/dL (6.4-8.2); SODIUM 144 mmol/L (136-145); UREA NITROGEN 13 mg/dL (7-18); eGFR NON AFRICAN AMERICAN 76 mL/min (90-120)
[2018-09-01 22:48] LABS: HCG - QUANTITATIVE (MATERNAL) 0 mIU/mL
[2018-09-02 01:48] VITALS: BP 128/73
== END 2018-09-02 01:48 | disposition home or self-care (01) ==
LOC: D.ER 21:03
PROVIDERS: Emergency Medicine
DX: N39.0 Urinary tract infection, site not specified (principal)

== ENCOUNTER → 2018-11-29 13:20 | Outpatient (CLI) | payer MEDICAID ==
[2018-09-01 21:30] VITALS: BMI 26.5
--- NOTE | 2018-12-02 15:03 | EC ---
PATIENT:CARMEN CONTRERAS DATE OF SERVICE: 11/29/18 SEX: F MEDICAL RECORD: [id number] DATE OF : [birth year] LOCATION:[facility] AGE OF PATIENT: 33 ADMISSION DATE: 11/29/18 REFERRING PHYSICIAN: INTERPRETING PHYSICIAN: BOB ALICIA MD ECHOCARDIOGRAM REPORT ECHO CHARGES 4 ECHO COMPLETE Date: 11/29/18 CLINICAL DIAGNOSIS: HYPOTENSION/NEAR SYNCOPE ECHOCARDIOGRAPHIC MEASUREMENTS (adult normal given) AC root (d.<3.7cm) 2.9 cm LV Septum d (<1.2 cm> 1.1 cm Valve Excursion 2.0 cm LV Septum (systole) 2.0 cm Left Atria (s.<4.0cm> 3.8 cm LVPW d(<1.2cm) 1.2 cm RV (d.<2.3cm) 2.5 cm LVPW (sytole) 2.1 cm LV diastole(<5.6CM) 5.1 cm MV E-F(>70mm/sec) cm LV systole 2.2 cm LVOT Diameter 2.0 cm MV exc.(>10mm) cm Est.ejection fraction (50-75%) % DOPPLER: LVIT cm/sec A 57.0 cm/sec E 87.0 cm/sec LA cm/sec RVSP 34.4 mmHg LVOT 124 cm/sec AOP1/2T m/s Asc. Ao 158 cm/sec RVOT 70.0 cm/sec RA cm/sec PA 87.0 cm/sec AV Gradient Peak 10.0 mmHg AV Mean 5.3 mmHg AV Area 2.6 cm MV Gradient Peak 4.3 mmHg MV Mean 2.2 mmHg MV Area cm COMMENTS: OP - HC Pulmonology Technician: Bonnie CARBAJALOE Cda Teacher: 1 Dr. Alicia TAPE# PACS Pericardial Effusion N DATE OF SERVICE: 11/29/2018 PROCEDURE: Echocardiogram. FINDINGS: 1. Left ventricular chamber size is within normal limits. Left ventricular systolic function is normal. Overall ejection fraction estimated at 60%. 2. Left atrium, right atrium and right ventricular chamber sizes are within normal limits. 3. Valvular structures have normal structure and motion. ECHOCARDIOGRAM REPORT [id number] CARMEN CONTRERAS 4. Doppler interrogation reveals trace mitral regurgitation, trace tricuspid regurgitation, no other valvular insufficiency or stenosis and pulmonary systolic pressure is normal estimated 34 mmHg. 5. No evidence of pericardial effusion or left ventricular thrombus. TRANSINT:[id number] Voice Confirmation ID: [id number] DOCUMENT ID: [id number] BOB ALICIA MD at 1503 CC: [id number] DICTATION DATE: 11/30/18 1008 STOCK LAYER: 11/30/18 1301 DEP CLI 11/29/18 [id number] [place] [address]
== END | disposition home or self-care (01) ==
LOC: D.HCCARDIO 13:20
PROVIDERS: ATTEND Internal Medicine Interventional Cardiology
DX: R07.9 Chest pain, unspecified (principal)

== ENCOUNTER 2019-01-19 07:49 | Emergency (ER) | payer MEDICAID ==
[~2019-01-19] VITALS: Ht 170.2 cm; Wt 78.6 kg
[2019-01-19 08:09] VITALS: Ht 170.2 cm; Wt 78.6 kg
[2019-01-19] MEDS ORDERED: CYMBALTA20 MG PO (08:15)
[2019-01-19] MEDS ORDERED: NEURONTIN 400400 MG PO (08:16)
[2019-01-19] MEDS ORDERED: CYCLOBENZAPRINE10 MG PO ×2 (08:16→08:38)
[2019-01-19] MEDS ORDERED: IBUPROFEN800 MG PO (08:38)
[2019-01-19] MEDS ORDERED: ACETAMINOPHEN500 M1 PO (08:38)
[2019-01-19 09:32] VITALS: BP 118/63
== END 2019-01-19 09:33 | disposition home or self-care (01) ==
LOC: D.ER 07:49
DX: S16.1XXA Strain of muscle, fascia and tendon at neck level, initial encounter (principal); X58.XXXA Exposure to other specified factors, initial encounter; Y93.89 Activity, other specified; Y92.89 Other specified places as the place of occurrence of the external cause; M43.6 Torticollis

== ENCOUNTER → 2019-01-19 14:28 | Outpatient (CLI) | payer MEDICAID ==
[2019-01-19 08:09] VITALS: BMI 27.1
[~2019-01-19 14:28] MED LIST changes: +ACETAMINOPHEN500 M1 PO; +CYMBALTA20 MG PO; +IBUPROFEN800 MG PO
== END | disposition home or self-care (01) ==
LOC: D.MRI 14:28
PROVIDERS: ATTEND Orthopaedic Surgery
DX: M22.41 Chondromalacia patellae, right knee (principal); M22.42 Chondromalacia patellae, left knee

== ENCOUNTER 2019-02-09 07:00 | Day surgery (SDC) | payer MEDICAID ==
[~2019-02-09] VITALS: Ht 170.2 cm; Wt 62.1 kg
[2019-02-09 07:34] LABS: HEMATOCRIT 35.8 % (36.0-48.0); HEMOGLOBIN 11.9 g/dL (12-16); MCH 30.4 pg (26.0-34.0); MCHC 33.2 g/dL (31.0-37.0); MCV 91.3 fL (80.0-100.0); MEAN PLATELET VOLUME 9.5 fL (7.4-10.4); RBC 3.92 10x6/uL (4.00-5.40); RDW 14.3 % (11.5-14.5)
[2019-02-09 08:06] VITALS: BP 124/74; Ht 170.2 cm; Wt 62.1 kg
[2019-02-09 08:32] LABS: HCG URINE NEGATIVE (NEGATIVE)
[2019-02-09] MEDS ORDERED: HYDROCODON-ACE1 EA10 PO (10:59)
--- NOTE | 2019-02-09 15:43 | NUR ---
1315 IV REMOVED WITH CATHALON INTACT. DISCHARGE INSTRUCTIONS GIVEN. VOICES UNDERSTANDING. DRESSED AT BEDSIDE. TAKEN OUT VIA WC. ADVISED TO CALL OR COME BACK IS ANY PROBLEMS.
--- NOTE | 2019-02-16 11:34 | OP ---
PATIENT NAME: CARMEN CONTRERAS MEDICAL RECORD: [id number] :81 LOCATION:[facility] ADMISSION DATE: SURGEON: KEYONNA MURRAY MD DATE OF OPERATION: 02/09/2019 PREOPERATIVE DIAGNOSIS: Patellofemoral syndrome of the left knee. POSTOPERATIVE DIAGNOSIS: Patellofemoral syndrome of the left knee. PROCEDURE: Left knee arthroscopy with arthroscopic lateral release. SURGEON: Keyonna Murray MD ANESTHESIA: General. INTRAOPERATIVE COMPLICATIONS: None. 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 OPERATIVE SUMMARY IN DETAIL: After obtaining the appropriate preoperative orthopedic surgery consent as well as anesthetic consultation, evaluation and clearance in conjunction with the appropriate time out and identification of the appropriate side, the patient's left knee was prepared with tourniquet about the proximal aspect. The left knee was then prepped and draped in routine sterile fashion. The leg was elevated and exsanguinated, tourniquet was inflated to 350 mmHg. Routine inferolateral portal was established followed by superomedial portal and inferomedial portal. Diagnostic arthroscopy showed the patient to have a relatively pristine knee with the exception of the patellofemoral disease. The arthroscopy portal was placed on the medial aspect and under direct visualization, the lateral retinaculum was released from just below the vastus lateralis to the inferolateral portal. Having completed this, the knee was insufflated with 30 cc of 0.25% Marcaine with epinephrine and 40 mg of Depo-Medrol. Arthroscopy portals were closed in routine interrupted fashion using 4-0 Prolene. Sterile dressings were applied. Tourniquet was deflated. The patient was awakened and taken to the recovery room in stable condition. All final needle and sponge counts were correct. TRANSINT:[id number] Voice Confirmation ID: [id number] DOCUMENT ID: [id number] KEYONNA MURRAY MD at 1134 CC: [id number] DICTATION DATE: 02/15/19 0950 SPA EXPERIENCE COORDINATOR: 02/15/19 1218 [facility] 02/09/19 [place] [address]
== END 2019-02-09 13:15 | disposition home or self-care (01) ==
LOC: D.OPS 07:00 → D.PAN 15:30
PROVIDERS: Anesthesiology; ATTEND Orthopaedic Surgery
DX: M22.2X2 Patellofemoral disorders, left knee (principal); Z01.812 Encounter for preprocedural laboratory examination

== ENCOUNTER 2019-03-20 20:47 | Emergency (ER) | payer MEDICAID ==
[~2019-03-20] VITALS: Ht 170.2 cm; Wt 81.2 kg
[~2019-03-20 20:47] MED LIST changes: +HYDROCODON-ACE1 EA10 PO
[2019-03-20 20:51] VITALS: BP 156/93; Ht 170.2 cm; Wt 81.2 kg
[2019-03-20] MEDS ORDERED: PROPRANOLOL HCL20 MG (20:53)
[2019-03-20] MEDS ORDERED: ADIPEX-P37.5 MG PO (20:53)
[2019-03-20] MEDS ORDERED: MINOCIN50 MG (20:54)
== END 2019-03-20 21:45 | disposition left against medical advice (07) ==
LOC: D.ER 20:47
DX: M25.511 Pain in right shoulder (principal)

== ENCOUNTER → 2019-03-24 13:11 | Outpatient (CLI) | payer MEDICAID ==
[2019-03-20 20:51] VITALS: BMI 28.0
[~2019-03-24 13:11] MED LIST changes: +ADIPEX-P37.5 MG PO; +MINOCIN50 MG; +PROPRANOLOL HCL20 MG
== END | disposition home or self-care (01) ==
LOC: D.MRI 13:11
PROVIDERS: ATTEND Clinical Nurse Specialist Family Health
DX: M25.511 Pain in right shoulder (principal)

== ENCOUNTER 2019-04-13 09:30 | Day surgery (SDC) | payer MEDICAID ==
[2019-04-11 11:29] LABS: HEMATOCRIT 34.9 % (36.0-48.0); HEMOGLOBIN 11.9 g/dL (12-16); MCH 30.4 pg (26.0-34.0); MCHC 34.1 g/dL (31.0-37.0); MCV 89.3 fL (80.0-100.0); RBC 3.91 10x6/uL (4.00-5.40); RDW 14.5 % (11.5-14.5)
[~2019-04-13] VITALS: Ht 170.2 cm; Wt 80.9 kg
[~2019-04-13 09:30] MED LIST changes: +VRAYLAR3 MG PO
[2019-04-13 12:13] VITALS: BP 140/87; Ht 170.2 cm; Wt 80.9 kg
[2019-04-13] MEDS ORDERED: HYDROCODON-ACE1 EA10 PO (14:40)
--- NOTE | 2019-04-13 18:44 | NUR ---
1535 PT STATES SHE NEEDS PAIN RX CHANGED BECAUSE SHE IS ON PAIN MANAGEMENT CONTRACT AND REQUESTS NO NORCO. MYRNA DELEON RN STATES SHE WILL TELL DR MURRAY. [address] MURRAY SAID TO RESUME PAIN CONTRACT MEDS 1605 PT STATES SHE HAS CLLED PAIN MANAGEMENT AND THEY SAID DR. MURRAY COULD RX PERCOCET FOR DURATION OF SURGICAL RECOVERY THEN SHE COULD RETURN TO NORCO BEFORE. DR. MURRAY IN SURGERY. PT WOULD LIKE TO WAIT TO SPEAK WITH HIM 1635 PT STILL WANTS TO WAIT TO SEE DR. MURRAY. BECOMING RESTLESS. RX'D WITH [facility]CO [address] MURRAY 1700 IV D/C'D WITH CANNULA INTACT. STILL AWAITING DR. MURRAY 1725 PT YELLING THAT IF SHE WOULD HAVE KNOWN THAT IT WOULD BE SO DIFFICULT TO GET PAIN MEDICATION SHE WOULD NOT HAVE HAD SURGERY. S/P BLOCK TO SHOULDER AND NORCO 1745 AT PTS REQUEST, I SPOKE WITH PHARMACIST AT HER PHARMACY AND EXPLAINED SHE JUST HAD SURGERY AND DR. MURRAY PRESCRIBED ADDITIONAL NORCO. PHARMACIST VERBALIZED AN UNDERSTANDIN. 1755 PT STATED THAT I WAS A "HORRIBLE NURSE" AND SHE "HAS HAD ENOUGH OF THE HOSPITAL AND THE DOCTOR". EVERY EFFORT WAS MADE TO FACILITATE HER REQUEST BUT DR. MURRAY HAD TO WRITE THE RX. PT LEFT WITH AN RX FOR ZOFRAN AND NORCO
--- NOTE | 2019-04-18 14:40 | OP ---
PATIENT NAME: CARMEN CONTRERAS MEDICAL RECORD: [id number] :81 LOCATION:D.OPS ADMISSION DATE: SURGEON: TERRI HARP, KEYONNA JAIN DATE OF OPERATION: 04/13/2019 PREOPERATIVE DIAGNOSIS: Residual painful biceps tendinitis. POSTOPERATIVE DIAGNOSIS: Residual painful biceps tendinitis. PROCEDURE: Left shoulder arthroscopy with biceps tendon release. SURGEON: Keyonna Murray MD ANESTHESIA: General. INTRAOPERATIVE COMPLICATIONS: None. SUMMARY OF PATHOLOGIC FINDINGS: The patient had all but completed her own biceps tenotomy with just a small strand hanging on. This is consistent with her preoperative pain and shots given in the clinic. OPERATIVE SUMMARY IN DETAIL: After obtaining the appropriate preoperative orthopedic surgery consent as well as anesthetic consultation, evaluation and clearance, the patient was brought to the operating room and placed on the operating table in supine position. After adequate general laryngeal mask airway was administered, the patient was placed in a right lateral decubitus position. All pressure points were well padded to include down leg peroneal pad as well as axillary pad. She was held firmly to the operating table using the vacuum pack suction system. Left upper shoulder were then prepped and draped in routine sterile fashion. The arm was held in the Arthrex traction boom in 30 degrees of forward flexion, 30 degrees of abduction with 10 pounds of traction laterally. At this point, the appropriate preoperative timeout was taken including the appropriate operative site, patient identifiers, medications, and allergies. Arthroscopy was established in the glenohumeral joint from the posterior portal. Anterior portal was established in the anterior safe interval. The biceps pathology was noted. It was quite simply tenotomized and the stump was taken back to the bicipital labral junction. The remainder of the exam inside the articular aspect looked relatively normal. Attention was then turned to the subacromial space. While in the subacromial space, the patient was found to have absolutely no pathology. She had a prior decompression and a rotator cuff was in overall good position. Having completed this, arthroscopy portals were closed in routine interrupted fashion using 4-0 Prolene. Sterile dressings were applied. The patient was awakened, taken to recovery room in stable condition. All final needle and sponge counts were correct. TRANSINT:[id number] Voice Confirmation ID: [id number] DOCUMENT ID: [id number] OPERATIVE REPORT [id number] CARMEN CONTRERAS PATRICIA MURRAY MD, KEYONNA JAIN at 1440 CC: [id number] DICTATION DATE: 04/18/19824 VALVE LAPPER: 04/18/19914 [facility] 04/13/19 [facility] [address] [place] [address]
== END 2019-04-13 17:55 | disposition home or self-care (01) ==
LOC: D.OPS 09:30 → D.PAN 12:45 → D.OPS 13:00
PROVIDERS: Anesthesiology; ATTEND Orthopaedic Surgery
DX: M75.22 Bicipital tendinitis, left shoulder (principal); Z01.812 Encounter for preprocedural laboratory examination

== ENCOUNTER 2019-05-10 18:33 | Inpatient (IN) | payer MEDICAID ==
[~2019-05-10] VITALS: Ht 170.2 cm; Wt 79.5 kg
[2019-05-10] MEDS ORDERED: LITHIUM CARBON150 MG PO (18:37)
[2019-05-10 19:46] LABS: APTT 24.9 SECONDS (22.8-39.4); INR 1.1 (0.85-1.17); PROTIME 13.7 SECONDS (11.6-15.0)
[2019-05-10 19:48] LABS: BASOPHILS 0.3 % (0-2); EOSINOPHILS 0.4 % (0-7); HEMATOCRIT 32.8 % (36.0-48.0); HEMOGLOBIN 11.2 g/dL (12-16); IMMATURE GRANULOCYTES 0.2 % (0-5); LYMPHOCYTES 19.1 % (15-50); MCH 30.4 pg (26.0-34.0); MCHC 34.1 g/dL (31.0-37.0); MCV 88.9 fL (80.0-100.0); MEAN PLATELET VOLUME 9.4 fL (7.4-10.4); MONOCYTES 7.3 % (2-11); NEUTROPHILS 72.7 % (40-80); PLATELET COUNT 288 10x3/uL (130-400); RBC 3.69 10x6/uL (4.00-5.40); RDW 13.9 % (11.5-14.5); WBC 10.8 10x3/uL (4.8-10.8)
[2019-05-10 19:59] LABS: ALBUMIN 3.4 g/dL (3.4-5.0); ALKALINE PHOSPHATASE 49 U/L (46-116); ALT (SGPT) 21 U/L (10-68); BILIRUBIN - TOTAL 0.34 mg/dL (0.2-1.3); CALC OSMOLALITY 276 mosm/kg (275-300); CARBON DIOXIDE 25.2 mmol/L (21.0-32.0); CHLORIDE - SERUM 107 mmol/L (98-107); CREATININE - SERUM 0.8 mg/dL (0.6-1.3); GLUCOSE 102 mg/dL (74-106); POTASSIUM - SERUM 4.2 mmol/L (3.5-5.1); PROTEIN - SERUM 6.7 g/dL (6.4-8.2); SODIUM 140 mmol/L (136-145); UREA NITROGEN 8 mg/dL (7-18); eGFR NON AFRICAN AMERICAN 86 mL/min (90-120)
--- NOTE | 2019-05-10 20:12 | NUR ---
PRE OP MEDICATIONS GIVEN ORDERED, UNABLE TO CHART. REGLAN GIVEN BY ANESTHESIOLOGIST.
--- NOTE | 2019-05-10 21:04 | NUR ---
LATERAL LIGAMENT REPAIR ALSO/ DEBRIDEMENT LEFT ANKLE
[2019-05-10 22:50] VITALS: BP 146/79
[2019-05-10 23:05] VITALS: BP 142/92
--- NOTE | 2019-05-10 23:15 | NUR ---
PT ARRIVED TO THE FLOOR. FAMILY AND HOSPITAL STAFF WITH HER. PT ALERT AND OREINTED. NO SINGS OF DISTRESS. BREATHING EVEN AND UNLABORED. IV SITE LT HAND DRESSING CLEAN DRY AND INTACT. NO SIGNS OF INFECTION. SKIN CLEAN DRY AND INTACT. BOWEL SOUNDS ACTIVE. LUNG SOUNDS CLEAR. LT LOWER LEG CAST ON DRESSING CLEAN DRY AND INTACT. ELEVATED WITH A PILLOW. WILL CONTINUE PLAN OF CARE. CALL LIGHT IN REACH. BED LOWERED AND LOCKED. BED RAILS UP X2.
[2019-05-10 23:20] VITALS: BP 130/73
[2019-05-10] MEDS ORDERED: TRAZODONE HCL150 MG PO (23:21)
[2019-05-10 23:35] VITALS: BP 137/75
[2019-05-10 23:52] VITALS: Ht 170.2 cm; Wt 79.5 kg
[2019-05-11] VITALS (7 sets, daily range): BP systolic 115–139; BP diastolic 53–79
--- NOTE | 2019-05-11 04:11 | NUR ---
I have reviewed this patient and I concur with the Shift Assessment completed by the Licensed Practical Nurse today this shift.
--- NOTE | 2019-05-11 07:30 | NUR ---
PT RESTING IN BED WITH C/O PAIN TO LEFT LOWER EXTREMITY 10/10 AT THIS TIME. NEW [employer]OTOGRAPH SYRINGE REPLACED AT THIS TIME. RESP EVEN AND UNLABORED. IV TO LEFT WRIST WITH 1/2 NS @ 50 ML, DILAUDID [employer]OR [employer]CHO[employer] PHOTOGRAPH INFUSING VIA PUMP. SITE WITHOUT REDNESS OR EDEMA. DRESSING AND SOFT CAST INTACT TO LEFT LOWER EXTREMITY. EXTREMITY WARM TO TOUCH. DENIES FURTHER NEEDS AT THIS TIME. CL WITHIN REACH. ENCOURAGED TO CALL WITH NEEDS. CONTINUE POC
--- NOTE | 2019-05-11 11:00 | NUR ---
PT TAKEN VIA BED TO PRE OP TO HAVE BLOCK PLACED IN LEFT LOWER EXTREMITY. NO ACUTE DISTRESS NOTED
--- NOTE | 2019-05-11 11:20 | NUR ---
PT RETURNED FROM OUTPATIENT. PT VOICED HAVING BLOCK COMPLETED. NO ACUTE DISTRESS NOTED. REPORTS PAIN 6/10 AT THIS TIME, REPORTS PAIN DECREASED WITH BLOCK
--- NOTE | 2019-05-11 12:40 | OP ---
PATIENT NAME: CARMEN CONTRERAS MEDICAL RECORD: [id number] :81 LOCATION:D.[facility] ADMISSION DATE:05/10/19 SURGEON: KEYONNA MURRAY MD DATE OF OPERATION: 05/10/2019 PREOPERATIVE DIAGNOSES: 1. Open fracture dislocation of the left ankle with lateral ligament damage. 2. AITF ligament injury. 3. Calcaneofibular ligament damage. 4. Grade II open ankle fracture. PROCEDURES: 1. Open reduction and internal fixation of open ankle fracture. 2. Lateral ligament reconstruction, acute Brostrom procedure. 3. Irrigation and debridement of open injury to include skin, subcutaneous tissue, portions of fat, fascia, muscle and bone and foreign matter. SURGEON: Dr. Keyonna Murray HEAVY FORGER: Ryan Buck INTRAOPERATIVE COMPLICATIONS: None. SUMMARY OF PATHOLOGIC FINDINGS: Fortunately, the patient's peroneus longus and brevis were maintained within the tendon sheath. The AITF and the calcaneofibular ligament were completely disrupted resulting in lateral subluxation. The patient's ankle was filled with what appeared to be black chips consistent with the patient doing cheerleading on a astroturf field. These were removed in their entirety along with small fragments of what appeared to be plastic turf. At the time of surgery, she was found to have a ligamentous injury as described and she did have a very minimally displaced ankle fracture. However, given the ligamentous laxity, I felt it was best to internally fix this for extra support. This was done with the Chalino AxSOS VariAx 2 fixation plate with a combination of both compression and locking screws. OPERATIVE SUMMARY IN DETAIL: After obtaining the appropriate preoperative orthopedic surgery consent as well as anesthetic consultation, evaluation and clearance, the lana was brought to the operating room and placed on the operating table in supine position. After general laryngeal mask airway was administered, the appropriate timeout was taken and agreed upon by all in the operative suite including the patient identifiers as well as the patient, operative site, tourniquet was placed about the proximal aspect of the left lower extremity. Note, it was not used during the case. Left lower extremity was then prepped and draped in a routine sterile fashion using Betadine paint and scrub. Most of the foreign material was removed at the time of paint scrub. At this point, copious irrigation was carried out by meticulous removal of all foreign material that includes small black fragments of what appeared to be rubberized material as well as the grass as mentioned above. OPERATIVE REPORT [id number] CARMEN CONTRERAS After copious irrigation, the wound was extended both superiorly and inferiorly for further evaluation. Further irrigation of the joint itself was then followed by meticulous reconstruction of the anterior-inferior talofibular ligament as well as the calcaneofibular ligament. This was done with a combination of both #1 FiberWire as well as #2-0 FiberWire. Having completed this, under fluoroscopic guidance, a VariAx 5-hole plate was then placed with a combination of both compression and locking screws for adequate fixation of the lateral fibular fracture. Having completed this, further irrigation was then followed by closure with a 2-0 Vicryl for reapproximation of both the original laceration as well as the elongated Z-plasty. This closure was achieved by NICHOL Gayle. After having completed this, the area was anesthetized with 0.25% Marcaine plain. Sterile dressings were applied and the L&U splint was applied with a component of the eversion to help relax the repair. The patient was then awakened and taken to the recovery in stable condition. All final needle and sponge counts were correct. TRANSINT:[id number] Voice Confirmation ID: [id number] DOCUMENT ID: [id number] TERRI HARP, KEYONNA JAIN at 1240 CC: [id number] DICTATION DATE: 05/10/192117 COMMERCIAL MANAGEMENT ACCOUNTANT: 05/11/19 0101 ADM IN [facility] [address] [id number]
[2019-05-11] MEDS ORDERED: SULFAMETHOXAZOL1 TA2 PO (13:22)
[2019-05-11] MEDS ORDERED: DILAUDID4 MG PO (13:22)
[2019-05-11] MEDS ORDERED: ELIQUIS2.5 MG PO (15:36)
--- NOTE | 2019-05-11 15:50 | MORECARE ---
CASE MANAGEMENT DISCHARGE SUMMARY PATIENT: CARMEN CONTRERAS UNIT: [id number] ADM DATE: 05/10/19 AGE: 33 : [birth year] SEX: F ROOM/BED: D.2211 AUTHOR: HEIDE PINTO PHYSICIAN: REFERRING PHYSICIAN: KEYONNA MURRAY MD DATE OF SERVICE: 05/11/19 Discharge Plan Patient Name: CARMEN CONTRERAS [facility] [facility] 1985 Planned Disposition: Home or Self Care Anticipated Discharge Date: Discharge Date: Expected LOS: Initial Reviewer: [email or web address] Initial Review Date: 05/10/2019 Generated: 05/11/19 4:49 pm Comments DCP- Discharge Planning Updated by [email or web address]: Kristen Serrano on 05/11/19 2:[address] Met with patient about discharging home today, her is at bedside. she has crutches and [facility] [place] [facility] [place] [facility] [place], patient denies any other needs at this time. CM to follow Patient Name: CARMEN CONTRERAS Page [id number] at 1550 All edits/amendments must be made on the electronic document DICTATION DATE: 05/11/191548 IN SERVICE COORDINATOR: TAYLOR 05/11/191548 RPT#: [id number] DC DATE: STATUS: ADM IN [facility] [address] [place] [address] END OF REPORT
--- NOTE | 2019-05-11 15:55 | NUR ---
PT GIVEN D/C INSTRUCTIONS. DISCUSSED PAIN MEDICATION AND OTHER PRESCRIBED MEDICATIONS. EDUCATED REGARDING S/S OF INFECTION OF INCISION SITE. PT VOICES UNDERSTANDING. EDUCATED PT REGARDING KEEPING SOFT CAST CLEAN AND DRY, BEING NON-WEIGHTBEARING. PT VOICES UNDERSTANDING. IV D/C'D FROM LEFT WRIST CATH INTACT. TAKEN OUT VIA W/C TO PRIVATE VEHICLE FOR DISCHARGE WITH ALL PERSONAL BELONGINGS.
[2019-05-12] MEDS ORDERED: PERCOCET 10-321 EAC1 PO (06:10)
--- NOTE | 2019-05-16 09:51 | MORECARE ---
CASE MANAGEMENT DISCHARGE SUMMARY PATIENT: CARMEN CONTRERAS UNIT: [id number] ADM DATE: 05/10/19 AGE: 33 : [birth year] SEX: F ROOM/BED: D.2211 AUTHOR: HEIDE PINTO PHYSICIAN: REFERRING PHYSICIAN: KEYONNA MURRAY MD DATE OF SERVICE: 05/16/19 Discharge Plan Patient Name: CARMEN CONTRERAS [facility] [facility] 1985 Planned Disposition: Home or Self Care Anticipated Discharge Date: Discharge Date: 05/11/2019 Expected LOS: 0 Initial Reviewer: [email or web address] Initial Review Date: 05/10/2019 Generated: 05/16/19 10:51 am Comments DCP- Discharge Planning Updated by [email or web address]: Kristen Serrano on 05/11/19 2:[address] Met with patient about discharging home today, her is at bedside. she has crutches and will be going [facility] [place] to get a sc[place], patient denies any other needs at this time. CM to follow Last DP export: 05/11/19 2:50 pm Patient Name: CARMEN CONTRERAS Page [phone] at 0951 All edits/amendments must be made on the electronic document DICTATION DATE: 05/16/19950 LASTING ROOM SUPERVISOR: TAYLOR 05/16/19 0951 RPT#: [id number] DC DATE:05/11/19 STATUS: DIS IN [facility] [address] [place] [address] END OF REPORT
== END 2019-05-11 16:15 | disposition home or self-care (01) | DRG 494 ==
LOC: D.ER 18:33 → D.MS 20:07 → D.SDCHOLD 05-11 11:52 → D.MS 05-11 11:56
PROVIDERS: Family Medicine; ADMIT Orthopaedic Surgery; ATTEND Orthopaedic Surgery
PROC: 0MQR0ZZ Repair Left Ankle Bursa and Ligament, Open Approach (ICD-10-PCS; 2019-05-10)
PROC: 0QSK04Z Reposition Left Fibula with Internal Fixation Device, Open Approach (ICD-10-PCS; principal; 2019-05-10 19:47)
DX: S82.892B Other fracture of left lower leg, initial encounter for open fracture type I or II (principal); S93.432A Sprain of tibiofibular ligament of left ankle, initial encounter; S93.412A Sprain of calcaneofibular ligament of left ankle, initial encounter

== ENCOUNTER 2019-05-12 05:17 | Emergency (ER) | payer MEDICAID ==
[~2019-05-12] VITALS: Ht 170.2 cm; Wt 79.5 kg
[~2019-05-12 05:17] MED LIST changes: +DILAUDID4 MG PO; +ELIQUIS2.5 MG PO; +LITHIUM CARBON150 MG PO; +SULFAMETHOXAZOL1 TA2 PO; +TRAZODONE HCL150 MG PO
[2019-05-12 05:18] VITALS: Ht 170.2 cm; Wt 79.5 kg
[2019-05-12] MEDS ORDERED: PERCOCET 10-321 EAC1 PO (06:10)
[2019-05-12 06:52] VITALS: BP 104/54
== END 2019-05-12 06:52 | disposition home or self-care (01) ==
LOC: D.ER 05:17
DX: S82.892 Other fracture of left lower leg (principal); X58.XXXD Exposure to other specified factors, subsequent encounter

== ENCOUNTER → 2019-06-08 16:54 | Outpatient (CLI) | payer MEDICAID ==
[2019-05-12 05:18] VITALS: BMI 27.4
[~2019-06-08 16:54] MED LIST changes: +PERCOCET 10-321 EAC1 PO; +VISTARIL25 MG PO
[2019-06-08 17:07] LABS: BASOPHILS 0.2 % (0-2); EOSINOPHILS 1.4 % (0-7); HEMATOCRIT 35.4 % (36.0-48.0); HEMOGLOBIN 11.4 g/dL (12-16); IMMATURE GRANULOCYTES 0.2 % (0-5); LYMPHOCYTES 37.2 % (15-50); MCH 29.6 pg (26.0-34.0); MCHC 32.2 g/dL (31.0-37.0); MCV 91.9 fL (80.0-100.0); MEAN PLATELET VOLUME 9.9 fL (7.4-10.4); MONOCYTES 10.9 % (2-11); NEUTROPHILS 50.1 % (40-80); PLATELET COUNT 389 10x3/uL (130-400); RBC 3.85 10x6/uL (4.00-5.40); RDW 14.2 % (11.5-14.5); WBC 6.6 10x3/uL (4.8-10.8)
[2019-06-08 18:11] LABS: ERYTHROCYTE SEDIMENTATION RATE 17 mm/hr (0-20)
== END | disposition home or self-care (01) ==
LOC: D.LABREF 16:54
PROVIDERS: ATTEND Clinical Nurse Specialist Family Health
DX: M25.9 Joint disorder, unspecified (principal)

== ENCOUNTER 2019-07-22 05:55 | Emergency (ER) | payer MEDICAID ==
[~2019-07-22] VITALS: Ht 170.2 cm; Wt 79.5 kg
[~2019-07-22 05:55] MED LIST changes: -VISTARIL25 MG PO
[2019-07-22 06:02] VITALS: Ht 170.2 cm; Wt 79.5 kg
[2019-07-22 06:38] LABS: APPEARANCE CLEAR (CLEAR); BILIRUBIN NEGATIVE (NEGATIVE); COLOR YELLOW (YELLOW); GLUCOSE NEGATIVE (NEGATIVE); KETONE NEGATIVE (NEGATIVE); NITRITE NEGATIVE (NEGATIVE); PROTEIN NEGATIVE (NEGATIVE); SPECIFIC GRAVITY 1.005 (1.005-1.020); UROBILINOGEN NORMAL (NORMAL)
[2019-07-22 08:12] LABS: BASOPHILS 0.3 % (0-2); EOSINOPHILS 3.6 % (0-7); HEMATOCRIT 33.1 % (36.0-48.0); HEMOGLOBIN 10.6 g/dL (12-16); IMMATURE GRANULOCYTES 0.3 % (0-5); LYMPHOCYTES 39.3 % (15-50); MCH 28.8 pg (26.0-34.0); MCV 89.9 fL (80.0-100.0); MEAN PLATELET VOLUME 9.1 fL (7.4-10.4); NEUTROPHILS 46.5 % (40-80); PLATELET COUNT 334 10x3/uL (130-400); RBC 3.68 10x6/uL (4.00-5.40); RDW 13.5 % (11.5-14.5); WBC 3.9 10x3/uL (4.8-10.8)
[2019-07-22 08:52] LABS: CALC OSMOLALITY 281 mosm/kg (275-300); CALCIUM 8.3 mg/dL (8.5-10.1); CARBON DIOXIDE 30.5 mmol/L (21.0-32.0); CHLORIDE - SERUM 105 mmol/L (98-107); CREATININE - SERUM 0.8 mg/dL (0.6-1.3); GLUCOSE 93 mg/dL (74-106); POTASSIUM - SERUM 4.2 mmol/L (3.5-5.1); SODIUM 142 mmol/L (136-145); UREA NITROGEN 11 mg/dL (7-18); eGFR NON AFRICAN AMERICAN 86 mL/min (90-120)
[2019-07-22 08:57] LABS: ALBUMIN 3.2 g/dL (3.4-5.0); ALKALINE PHOSPHATASE 60 U/L (46-116); ALT (SGPT) 28 U/L (10-68); BILIRUBIN - TOTAL 0.22 mg/dL (0.2-1.3); PROTEIN - SERUM 6.7 g/dL (6.4-8.2)
[2019-07-22 09:03] VITALS: BP 120/72
== END 2019-07-22 09:04 | disposition home or self-care (01) ==
LOC: D.ER 05:55
PROVIDERS: Emergency Medicine
DX: D64.9 Anemia, unspecified (principal); T43.595A Adverse effect of other antipsychotics and neuroleptics, initial encounter; R42 Dizziness and giddiness; R53.1 Weakness; G43.909 Migraine, unspecified, not intractable, without status migrainosus; I10 Essential (primary) hypertension; M19.90 Unspecified osteoarthritis, unspecified site

== ENCOUNTER 2019-07-27 11:18 | Emergency (ER) | payer MEDICAID ==
[~2019-07-27] VITALS: Ht 170.2 cm; Wt 81.8 kg
[2019-07-27 11:24] VITALS: BP 132/94; Ht 170.2 cm; Wt 81.8 kg
[2019-07-27 12:07] LABS: BASOPHILS 0.2 % (0-2); EOSINOPHILS 1.6 % (0-7); HEMATOCRIT 34.1 % (36.0-48.0); LYMPHOCYTES 36.7 % (15-50); MCH 28.8 pg (26.0-34.0); MCHC 32.3 g/dL (31.0-37.0); MCV 89.3 fL (80.0-100.0); MEAN PLATELET VOLUME 8.8 fL (7.4-10.4); MONOCYTES 9.6 % (2-11); NEUTROPHILS 51.9 % (40-80); RBC 3.82 10x6/uL (4.00-5.40); RDW 14.1 % (11.5-14.5); WBC 4.5 10x3/uL (4.8-10.8)
[2019-07-27 12:10] LABS: PLATELET COUNT 411 10x3/uL (130-400)
[2019-07-27 12:12] LABS: UDS - AMPHET NEGATIVE QUAL (NEGATIVE); UDS - BARB NEGATIVE QUAL (NEGATIVE); UDS - BENZO POSITIVE QUAL (NEGATIVE); UDS - COCAINE NEGATIVE QUAL (NEGATIVE); UDS - OPIATE POSITIVE QUAL (NEGATIVE); UDS - PCP NEGATIVE QUAL (NEGATIVE); UDS - THC NEGATIVE QUAL (NEGATIVE)
[2019-07-27 12:16] LABS: APPEARANCE CLEAR (CLEAR); BILIRUBIN NEGATIVE (NEGATIVE); COLOR YELLOW (YELLOW); GLUCOSE NEGATIVE (NEGATIVE); KETONE NEGATIVE (NEGATIVE); NITRITE NEGATIVE (NEGATIVE); PROTEIN NEGATIVE (NEGATIVE); UROBILINOGEN NORMAL (NORMAL)
[2019-07-27 12:18] LABS: CALC OSMOLALITY 278 mosm/kg (275-300); CALCIUM 9.2 mg/dL (8.5-10.1); CARBON DIOXIDE 26.8 mmol/L (21.0-32.0); CHLORIDE - SERUM 107 mmol/L (98-107); CREATININE - SERUM 0.8 mg/dL (0.6-1.3); GLUCOSE 81 mg/dL (74-106); POTASSIUM - SERUM 4.3 mmol/L (3.5-5.1); SODIUM 141 mmol/L (136-145); UREA NITROGEN 10 mg/dL (7-18); eGFR NON AFRICAN AMERICAN 86 mL/min (90-120)
[2019-07-27 12:21] LABS: ALBUMIN 3.6 g/dL (3.4-5.0); ALKALINE PHOSPHATASE 61 U/L (46-116); ALT (SGPT) 27 U/L (10-68); BILIRUBIN - TOTAL 0.29 mg/dL (0.2-1.3); PROTEIN - SERUM 7.4 g/dL (6.4-8.2)
--- NOTE | 2019-07-27 12:55 | NUR ---
PT DENIES SI AND THE SUICIDE SCREEN DOES NOT CALL FOR AN ASSESSMENT. PT STATED SHE IS BIPOLAR AND OFF OF HER MEDICATIONS. PT DOES HAVE AN APPT TO GET HER MEDICATIONS NEXT WEEK. RESOURCES REVIEWED WITH THE PT AND SHE VERBALIZED UNDERSTANDING. NO NEED FOR A SITTER AT THIS TIME PER DR. KHALIL.
[2019-07-27] MEDS ORDERED: VRAYLAR3 MG PO (13:56)
[2019-07-27] MEDS ORDERED: CYMBALTA60 MG PO (13:56)
== END 2019-07-27 16:01 | disposition home or self-care (01) ==
LOC: D.ER 11:18
PROVIDERS: Emergency Medicine
DX: Z76.0 Encounter for issue of repeat prescription (principal); Z86.59 Personal history of other mental and behavioral disorders; I10 Essential (primary) hypertension; F32.9 Major depressive disorder, single episode, unspecified; M54.9 Dorsalgia, unspecified

== ENCOUNTER → 2019-08-01 12:12 | Outpatient (CLI) | payer MEDICAID ==
[2019-07-27 11:24] VITALS: BMI 28.2
[~2019-08-01 12:12] MED LIST changes: +VISTARIL25 MG PO
== END | disposition home or self-care (01) ==
LOC: D.MRI 07-27 11:00
PROVIDERS: ATTEND Clinical Nurse Specialist Family Health
DX: M25.572 Pain in left ankle and joints of left foot (principal)

== ENCOUNTER 2019-08-08 14:41 | Emergency (ER) | payer MEDICAID ==
[~2019-08-08] VITALS: Ht 170.2 cm; Wt 81.8 kg
[~2019-08-08 14:41] MED LIST changes: -VISTARIL25 MG PO
[2019-08-08 15:22] VITALS: Ht 170.2 cm; Wt 81.8 kg
[2019-08-08] MEDS ORDERED: VISTARIL25 MG PO (16:02)
[2019-08-08 16:28] VITALS: BP 125/74
== END 2019-08-08 16:28 | disposition home or self-care (01) ==
LOC: D.ER 14:41
DX: F41.8 Other specified anxiety disorders (principal); M62.838 Other muscle spasm; I10 Essential (primary) hypertension

== ENCOUNTER → 2020-01-05 15:00 | Outpatient (CLI) | payer MEDICARE, MEDICAID ==
[2019-08-08 15:22] VITALS: BMI 28.2
[~2020-01-05 15:00] MED LIST changes: +VISTARIL25 MG PO
== END | disposition home or self-care (01) ==
LOC: D.MRI 15:00
PROVIDERS: ATTEND Orthopaedic Surgery
DX: M76.822 Posterior tibial tendinitis, left leg (principal)

== ENCOUNTER 2020-04-09 13:55 | Emergency (ER) | payer MEDICARE ==
[~2020-04-09] VITALS: Ht 170.2 cm; Wt 84.1 kg
[2020-04-09 14:02] VITALS: Ht 170.2 cm; Wt 84.1 kg
[2020-04-09] MEDS ORDERED: NEURONTIN 400400 MG PO (14:04)
[2020-04-09 14:36] LABS: BASOPHILS 0.1 % (0-2); EOSINOPHILS 1.6 % (0-7); HEMATOCRIT 37.6 % (36.0-48.0); HEMOGLOBIN 12.3 g/dL (12-16); IMMATURE GRANULOCYTES 0.2 % (0-5); LYMPHOCYTES 34.5 % (15-50); MCHC 32.7 g/dL (31.0-37.0); MCV 88.7 fL (80.0-100.0); MEAN PLATELET VOLUME 9.2 fL (7.4-10.4); MONOCYTES 8.6 % (2-11); PLATELET COUNT 366 10x3/uL (130-400); RBC 4.24 10x6/uL (4.00-5.40); RDW 14.4 % (11.5-14.5); WBC 8.2 10x3/uL (4.8-10.8)
[2020-04-09 14:47] LABS: APTT 24.6 SECONDS (22.8-39.4); CALC OSMOLALITY 275 mosm/kg (275-300); CALCIUM 9.3 mg/dL (8.5-10.1); CARBON DIOXIDE 23.1 mmol/L (21.0-32.0); CHLORIDE - SERUM 105 mmol/L (98-107); CREATININE - SERUM 0.9 mg/dL (0.6-1.3); GLUCOSE 113 mg/dL (74-106); POTASSIUM - SERUM 3.9 mmol/L (3.5-5.1); PROTIME 13.1 SECONDS (11.6-15.0); SODIUM 137 mmol/L (136-145); UREA NITROGEN 15 mg/dL (7-18); eGFR NON AFRICAN AMERICAN 75 mL/min (90-120)
[2020-04-09 15:02] LABS: ALBUMIN 3.7 g/dL (3.4-5.0); ALKALINE PHOSPHATASE 61 U/L (30-120); ALT (SGPT) 30 U/L (10-68); BILIRUBIN - TOTAL 0.32 mg/dL (0.2-1.3); CKMB 0.3 U/L (0.0-3.6); CREATINE KINASE 52 UL (21-215); PROTEIN - SERUM 7.4 g/dL (6.4-8.2)
[2020-04-09 15:03] LABS: TROPONIN-I < 0.017 ng/mL (0.000-0.060)
[2020-04-09 16:35] LABS: BILIRUBIN NEGATIVE (NEGATIVE); GLUCOSE NEGATIVE (NEGATIVE); KETONE NEGATIVE (NEGATIVE); NITRITE NEGATIVE (NEGATIVE); UROBILINOGEN NORMAL (NORMAL)
[2020-04-09 16:36] LABS: EPITHELIAL CELLS 0-5 /hpf (0-5); RED CELLS - URINE 0-5 /hpf (0-5); WHITE CELLS - URINE 0-5 /hpf (NEGATIVE)
[2020-04-09 16:37] LABS: BACTERIA MODERATE /hpf (NEGATIVE)
[2020-04-09 17:44] VITALS: BP 134/93
== END 2020-04-09 17:44 | disposition home or self-care (01) ==
LOC: D.ER 13:55
PROVIDERS: Family Medicine
DX: R07.89 Other chest pain (principal); I10 Essential (primary) hypertension; M54.9 Dorsalgia, unspecified; R12 Heartburn

== ENCOUNTER → 2020-04-16 12:55 | Outpatient (CLI) | payer MEDICARE ==
[2020-04-09 14:02] VITALS: BMI 29.0
== END | disposition home or self-care (01) ==
LOC: D.MRI 03-19 10:30
PROVIDERS: ATTEND Orthopaedic Surgery
DX: M25.511 Pain in right shoulder (principal)

== ENCOUNTER 2020-04-24 17:16 | Emergency (ER) | payer MEDICARE ==
[~2020-04-24] VITALS: Ht 170.2 cm; Wt 83.6 kg
[2020-04-24 17:30] VITALS: Ht 170.2 cm; Wt 83.6 kg
[2020-04-24 18:07] LABS: BACTERIA MANY /hpf (NEGATIVE); EPITHELIAL CELLS 0-5 /hpf (0-5); RED CELLS - URINE >50 /hpf (0-5); WHITE CELLS - URINE 0-5 /hpf (NEGATIVE)
[2020-04-24 18:27] LABS: BASOPHILS 0.2 % (0-2); EOSINOPHILS 1.6 % (0-7); HEMATOCRIT 34.5 % (36.0-48.0); HEMOGLOBIN 11.1 g/dL (12-16); IMMATURE GRANULOCYTES 0.3 % (0-5); LYMPHOCYTES 27.4 % (15-50); MCH 28.5 pg (26.0-34.0); MCHC 32.2 g/dL (31.0-37.0); MCV 88.7 fL (80.0-100.0); MEAN PLATELET VOLUME 8.8 fL (7.4-10.4); MONOCYTES 10.2 % (2-11); NEUTROPHILS 60.3 % (40-80); PLATELET COUNT 421 10x3/uL (130-400); RBC 3.89 10x6/uL (4.00-5.40); RDW 14.7 % (11.5-14.5); WBC 10.4 10x3/uL (4.8-10.8)
[2020-04-24 18:38] LABS: ANION GAP 14.5 mmol/L (8-16); CARBON DIOXIDE 24.2 mmol/L (21.0-32.0); POTASSIUM - SERUM 3.7 mmol/L (3.5-5.1)
[2020-04-24 18:44] LABS: ALBUMIN 3.6 g/dL (3.4-5.0); BILIRUBIN - TOTAL 0.43 mg/dL (0.2-1.3); PROTEIN - SERUM 7.2 g/dL (6.4-8.2)
[2020-04-24] MEDS ORDERED: ZOFRAN8 MG PO (20:38)
[2020-04-24] MEDS ORDERED: HYDROCODON-ACE1 EA10 PO (20:38)
[2020-04-24] MEDS ORDERED: FLOMAX0.4 MG PO (20:38)
[2020-04-24 21:26] VITALS: BP 136/70
== END 2020-04-24 21:26 | disposition home or self-care (01) ==
LOC: D.ER 17:16
PROVIDERS: Family Medicine
DX: N39.0 Urinary tract infection, site not specified (principal); R10.30 Lower abdominal pain, unspecified; I10 Essential (primary) hypertension; R00.0 Tachycardia, unspecified; M54.9 Dorsalgia, unspecified

== ENCOUNTER 2020-05-18 16:39 | Emergency (ER) | payer MEDICARE ==
[~2020-05-18] VITALS: Ht 170.2 cm; Wt 82.7 kg
[~2020-05-18 16:39] MED LIST changes: +FLOMAX0.4 MG PO; +ZOFRAN8 MG PO
[2020-05-18 16:45] VITALS: BP 134/75; Ht 170.2 cm; Wt 82.7 kg
[2020-05-18 17:11] LABS: BILIRUBIN NEGATIVE (NEGATIVE); KETONE NEGATIVE (NEGATIVE); NITRITE NEGATIVE (NEGATIVE); UROBILINOGEN NORMAL mg/dL (< 2)
[2020-05-18 17:18] LABS: BASOPHILS 0.2 % (0-2); EOSINOPHILS 0.4 % (0-7); HEMATOCRIT 31.8 % (36.0-48.0); HEMOGLOBIN 10.1 g/dL (12-16); IMMATURE GRANULOCYTES 0.2 % (0-5); LYMPHOCYTES 27.1 % (15-50); MCH 28.1 pg (26.0-34.0); MCHC 31.8 g/dL (31.0-37.0); MCV 88.6 fL (80.0-100.0); MEAN PLATELET VOLUME 9.1 fL (7.4-10.4); MONOCYTES 7.2 % (2-11); NEUTROPHILS 64.9 % (40-80); PLATELET COUNT 449 10x3/uL (130-400); RBC 3.59 10x6/uL (4.00-5.40); RDW 15.4 % (11.5-14.5); WBC 9.3 10x3/uL (4.8-10.8)
[2020-05-18 17:30] LABS: CALC OSMOLALITY 280 mosm/kg (275-300); CALCIUM 8.5 mg/dL (8.5-10.1); CARBON DIOXIDE 28.1 mmol/L (21.0-32.0); CHLORIDE - SERUM 105 mmol/L (98-107); CREATININE - SERUM 0.9 mg/dL (0.6-1.3); GLUCOSE 91 mg/dL (74-106); POTASSIUM - SERUM 3.7 mmol/L (3.5-5.1); SODIUM 141 mmol/L (136-145); UREA NITROGEN 13 mg/dL (7-18); eGFR NON AFRICAN AMERICAN 75 mL/min (90-120)
[2020-05-18 17:33] LABS: HCG URINE NEGATIVE (NEGATIVE)
[2020-05-18 17:37] LABS: ALBUMIN 3.2 g/dL (3.4-5.0); ALKALINE PHOSPHATASE 58 U/L (30-120); ALT (SGPT) 17 U/L (10-68); BILIRUBIN - TOTAL 0.19 mg/dL (0.2-1.3); PROTEIN - SERUM 6.8 g/dL (6.4-8.2)
[2020-05-18] MEDS ORDERED: DICLOFENAC SODI50 MG PO (18:16)
[2020-05-18] MEDS ORDERED: ZOFRAN ODT4 MG/UDTAB PO (18:16)
== END 2020-05-18 19:30 | disposition home or self-care (01) ==
LOC: D.ER 16:39
PROVIDERS: Family Medicine
DX: N23 Unspecified renal colic (principal); I10 Essential (primary) hypertension; R35.0 Frequency of micturition

== ENCOUNTER 2020-05-23 05:49 | Day surgery (SDC) | payer MEDICARE ==
[~2020-05-23] VITALS: Ht 170.2 cm; Wt 81.6 kg
[~2020-05-23 05:49] MED LIST changes: +DICLOFENAC SODI50 MG PO; +EFFEXOR25 MG PO; +SEROQUEL200 MG PO; +ZOFRAN ODT4 MG/UDTAB PO
[2020-05-23 06:12] LABS: HEMATOCRIT 33.6 % (36.0-48.0); HEMOGLOBIN 10.8 g/dL (12-16); MCH 27.8 pg (26.0-34.0); MCHC 32.1 g/dL (31.0-37.0); MCV 86.4 fL (80.0-100.0); MEAN PLATELET VOLUME 8.9 fL (7.4-10.4); RBC 3.89 10x6/uL (4.00-5.40); WBC 11.1 10x3/uL (4.8-10.8)
[2020-05-23 07:35] VITALS: BP 120/75; Ht 170.2 cm; Wt 81.6 kg
[2020-05-23] MEDS ORDERED: PERCOCET 10-321 EAC1 PO (09:02)
--- NOTE | 2020-05-23 11:19 | OP ---
PATIENT NAME: CARMEN CONTRERAS MEDICAL RECORD: [id number] :81 LOCATION:D.OPS ADMISSION DATE: SURGEON: KEYONNA MURRAY MD DATE OF OPERATION: 05/23/2020 PREOPERATIVE DIAGNOSIS: Painful hardware of the left ankle - lateral malleolus. POSTOPERATIVE DIAGNOSIS: Painful hardware of the left ankle - lateral malleolus. PROCEDURE: Removal of painful hardware, lateral malleolus. SURGEON: Keyonna Murray MD CORRUGATOR HELPER: NICHOL Asencio INTRAOPERATIVE COMPLICATIONS: None. SUMMARY OF PATHOLOGIC FINDINGS: Essentially, the patient's previous fracture had healed as seen on x-ray. The patient did have thin skin and this was causing her pain with shoe wear as well as pain in general. OPERATIVE SUMMARY IN DETAIL: After obtaining the appropriate preoperative orthopedic surgery consent as well as anesthetic consultation, evaluation and clearance, the patient was brought to the operating room and placed on the operating table in supine position. After adequate general laryngeal mask was administered, tourniquet was placed on the proximal aspect of left lower extremity. Left lower extremity was then prepped and draped in routine sterile fashion. The leg was elevated and exsanguinated, tourniquet inflated to 350 mmHg. At this point, the appropriate timeout was taken and agreed upon by all given the patient's unique identifiers. The patient's previous incision was utilized. It was a nonlinear incision in the mid substance as this was an open fracture before. The incision line was based on her prior surgery. This was taken down to the level of the plate and then under fluoroscopic guidance to be sure that all the hardware was removed, the locking and nonlocking screws were serial and sequentially removed as was the plate. Final radiographs without the plate was taken and submitted for radiologist review. The wound was then copiously irrigated and closed in multilayered fashion by first niurka Cardona. Having completed this, sterile dressings were applied. Tourniquet was deflated. The patient was awakened and taken to recovery room in stable condition. All final needle and sponge counts were correct. TRANSINT:[id number] Voice Confirmation ID: [id number] DOCUMENT ID: [id number] KEYONNA MURRAY MD at 1119 CC: [id number] DICTATION DATE: 05/23/20 09 UNDERWRITING TECHNICIAN: 05/23/20 1014 REG [facility] [address] [place], [facility]
--- NOTE | 2020-05-23 13:01 | NUR ---
IV D/C'D WITH CANNULA INTACT, PRESSURE HELD AND DRSG PLACED. DISCHARGE INSTRUCTIONS GIVEN AND PT VERBALIZED AN UNDERSTANDING. OPERATIVE SITE IS WITH AN EFFECTIVE NERVE BLOCK AND CDI DRSG.DISCHARGED IN STABLE CONDITION AND WITHOUT C/O
== END 2020-05-23 11:55 | disposition home or self-care (01) ==
LOC: D.OPS 05:49 → D.PAN 08:15 → D.OPS 11:55
PROVIDERS: Anesthesiology; ATTEND Orthopaedic Surgery
DX: Z97.8 Presence of other specified devices (principal); M25.572 Pain in left ankle and joints of left foot; M67.811 Other specified disorders of synovium, right shoulder

== ENCOUNTER 2020-05-25 17:04 | Emergency (ER) | payer MEDICARE ==
[~2020-05-25] VITALS: Ht 170.2 cm; Wt 81.8 kg
[2020-05-25 17:16] VITALS: Ht 170.2 cm; Wt 81.8 kg
[2020-05-25 18:42] LABS: ANION GAP 14.1 mmol/L (8-16); CALCIUM 9.4 mg/dL (8.5-10.1); CARBON DIOXIDE 25.2 mmol/L (21.0-32.0); POTASSIUM - SERUM 3.3 mmol/L (3.5-5.1)
[2020-05-25 18:44] LABS: BASOPHILS 0.2 % (0-2); EOSINOPHILS 0.9 % (0-7); HEMATOCRIT 35.9 % (36.0-48.0); HEMOGLOBIN 11.3 g/dL (12-16); IMMATURE GRANULOCYTES 0.3 % (0-5); LYMPHOCYTES 17.2 % (15-50); MCH 27.6 pg (26.0-34.0); MCHC 31.5 g/dL (31.0-37.0); MCV 87.6 fL (80.0-100.0); MEAN PLATELET VOLUME 9.2 fL (7.4-10.4); NEUTROPHILS 69.4 % (40-80); PLATELET COUNT 503 10x3/uL (130-400); RDW 15.2 % (11.5-14.5); WBC 10.1 10x3/uL (4.8-10.8)
[2020-05-25 18:47] LABS: ALBUMIN 3.4 g/dL (3.4-5.0); BILIRUBIN - TOTAL 0.33 mg/dL (0.2-1.3); PROTEIN - SERUM 7.6 g/dL (6.4-8.2)
[2020-05-25] MEDS ORDERED: FLOMAX0.4 MG PO (20:49)
[2020-05-25 21:27] VITALS: BP 139/91
== END 2020-05-25 21:28 | disposition home or self-care (01) ==
LOC: D.ER 17:04
PROVIDERS: Family Medicine
DX: N20.0 Calculus of kidney (principal); G62.9 Polyneuropathy, unspecified; I10 Essential (primary) hypertension; K21.9 Gastro-esophageal reflux disease without esophagitis

== ENCOUNTER → 2020-06-14 16:04 | Outpatient (CLI) | payer MEDICARE ==
[2020-05-25 17:16] VITALS: BMI 28.2
== END | disposition home or self-care (01) ==
LOC: D.LABREF 16:04
PROVIDERS: ATTEND Urology
DX: R82.90 Unspecified abnormal findings in urine (principal); R31.9 Hematuria, unspecified

== ENCOUNTER → 2020-11-04 10:04 | Outpatient (CLI) | payer MEDICARE ==
[2020-08-31 22:22] VITALS: BMI 26.7
[~2020-11-04 10:04] MED LIST changes: +EFFEXOR37.5 MG PO; +MACROBID100 MG PO; +MEDROL DOSE PACK4 MG PO; +METHOCARBAMOL500 MG PO; +PROPRANOLOL HCL20 MG PO; +XANAX0.5 MG PO
== END | disposition home or self-care (01) ==
LOC: D.MRI 10-30 14:30
PROVIDERS: ATTEND Clinical Nurse Specialist Family Health
DX: M25.572 Pain in left ankle and joints of left foot (principal)

== ENCOUNTER → 2020-11-11 15:53 | Outpatient (CLI) | payer MEDICARE ==
[2020-08-31 22:22] VITALS: BMI 26.7
[2020-11-11 16:31] LABS: BASOPHILS 0.3 % (0-2); EOSINOPHILS 0.3 % (0-7); HEMATOCRIT 32.3 % (36.0-48.0); HEMOGLOBIN 10.4 g/dL (12-16); IMMATURE GRANULOCYTES 0.1 % (0-5); LYMPHOCYTE ABS# 1.26 10x3/uL (1.18-3.74); LYMPHOCYTES 16.8 % (15-50); MCH 25.9 pg (26.0-34.0); MCHC 32.2 g/dL (31.0-37.0); MCV 80.3 fL (80.0-100.0); MEAN PLATELET VOLUME 9.6 fL (7.4-10.4); MONOCYTES 3.2 % (2-11); NEUTROPHIL ABS# 5.96 10x3/uL (1.56-6.13); NEUTROPHILS 79.3 % (40-80); PLATELET COUNT 351 10x3/uL (130-400); RBC 4.02 10x6/uL (4.00-5.40); RDW 16.7 % (11.5-14.5); WBC 7.5 10x3/uL (4.8-10.8)
[2020-11-11 17:00] LABS: C-REACTIVE PROTEIN < 0.2 mg/dL (0.0-0.9); CALCIUM 8.8 mg/dL (8.5-10.1); THYROID STIMULATING HORMONE 0.77 uIU/mL (0.36-3.74)
[2020-11-11 17:42] LABS: ERYTHROCYTE SEDIMENTATION RATE 11 mm/hr (0-20)
== END | disposition home or self-care (01) ==
LOC: D.LABREF 15:53
PROVIDERS: ATTEND Clinical Nurse Specialist Family Health
DX: M25.472 Effusion, left ankle (principal); M25.572 Pain in left ankle and joints of left foot